=== PATIENT | female | born 1940 | race Caucasian/White ===

== ENCOUNTER 2024-06-07 19:27 | Observation (INO) | payer MEDICARE, SELFPAY ==
[2024-06-07] VITALS (11 sets, daily range): BP systolic 105–166; BP diastolic 55–90; PULSE 77–96; O2SAT 98; BMI 20.6; BMI 25.1
[2024-06-07 15:35] LABS: Glucose - Point of Care 160 mg/dl (70-99)
--- NOTE | 2024-06-07 15:42 | ED.GENMED ---
History of Present Illness
General
Chief Complaint: Fall
Source: patient
Exam Limitations: none
Time Seen by Provider: 06/07/24 15:20
Nursing documentation reviewed up to this point in time: agreed with
History of Present Illness
History of Present Illness:
84 Y/O F with CKD stage IV, DM, htn, confusion occasionally
lives alone
used to live with son who passed
other son visits daily and has cameras
pt recalls falling yesterday afternoon while in the kitchen. says she was reaching for her cane and fell
denies head strike
hurt her right side, ankle/foot, hip
yesterday son visited and thought she wasn't really herself, was limping more than usual
apparently has chronic right ankle pain and right hip pain after hip surgery
she also is on chronic morphine from broken lower back years ago
midodrine for orthostasis if necessary
pt doesn't recall being lightheaded before the fall
son says she is more herself yesterday but was limping and he wanted her checked
no thinners, plavix only
pt has not had cp, sob, vomiting, diarrhea, fever, chills, urinary symptoms
Past History
Past History
ED Past Medical History: NIDDM and Other (Diabetic neuropathy)
Social History
Tobacco: Former smoker
Alcohol: None
Drug: None
Living: with family
Employment: Retired
Family History
Family History: Diabetes
Review of Systems
Review of Systems
Allergies reviewed?: Yes
All Other Systems: Not applicable
Phy Exam
Physical Exam
Physical Exam:
GENERAL: Alert , in no apparent distress
HEAD: NCAT
NECK: no midline tenderness, active ROM intact, no paraspinal muscle tenderness;
EYE: pupils equal and reactive, EOMs intact.
ENT: o/p clr, mmm. no hemotympanum
CARDIAC: Regular rate and rhythm, no edema
LUNGS: Clear breath sounds bilaterally, no acute respiratory distress, no wheezes/rales/rhonchi
ABDOMEN: Soft, without focal tenderness, no r/g, no cvat
NEUROLOGICAL: Alert and oriented, no focal neuro deficits, CN intact, 5/5 strength, sensation intact
SKIN: Warm and dry, small skin tear approximately 2 cm left elbow with some ecchymosis,
MUSCULOSKELETAL: Moderate right ankle edema, tender right lateral malleolus, limited painful range of motion, mild right lateral trochanter area pain with hip 50 flexion, mild pain with rotation, knee seems nontender, full flexion, no focal foot
tenderness but minimal swelling diffusely, left elbow full range of motion, bilateral shoulders nontender, no neck tenderness
PSYCH: Normal and appropriate interaction.
Course
Orders/Labs/Results
Orders:
Orders
06/07/24 13:23
CT Head W/o Iv Contrast Urgent
Comment:
Reason For Exam: fall
CR Ankle - Right Min 3 Views * Urgent
Comment:
Reason For Exam: pain
CR Foot - Right Min 3 Views Urgent
Comment:
Reason For Exam: pain
CR Hip - RT w/wo Pel 2-3 Vw* Urgent
Comment:
Reason For Exam: pain
Include a pelvis x-ray?: Yes
CR Pelvis - 1 Or 2 Views Urgent
Comment:
Reason For Exam: pain
06/07/24 Dinner
Cholesterol Lowering
At Your Request: Limited Participation
Does patient need a safe tray?: No
Cholesterol Lowering: Sodium, 2 Gram
1800 elina/15 CHO Diabetic
06/07/24 15:40
Case Management Consult ONCE
Case Management Consult: VN/Home Care
Orthostatic VS- Treatment ONCE
boot [Ortho Boot Right- Treatment] ONCE
Short or tall?: Short
PT Consult [Pt Eval And Treat] Urgent
Activity Level: Ambulate
06/07/24 15:41
Electrocardiogram (*1) Urgent
Reason for Study: Fatigue / Weakness
EKG- Treatment ONCE
06/07/24 16:58
Basic Metabolic Panel Urgent
Comment: BMP NO K
Complete Blood Count/With Diff Urgent
Urinalysis Reflex To Culture Urgent
Date Specimen was Collected: 06/07/24
Time Specimen was Collected: 16:17
06/07/24 17:46
Morphine Sulfate Extended Rel. [Ms Contin (Extended Release)] 60 mg PO NOW STA
06/07/24 18:26
0.9% Sodium Chloride 500 ml [Nss] 500 ml IV BOLUS
06/07/24 18:59
Admit/Transfer Patient As Directed
Co-Sign Provider:
Level of Care: Observation services
Assign to:: Medical/Surgical
Physician / Group: domenic
Diagnosis: fall
06/07/24 19:16
Potassium Urgent
06/07/24 19:27
Code Status As Directed
Resuscitation Status: Do not resuscitate
Reached after discussion with pt or family/Healthcare POA: Yes
DNR Bracelet Application ONCE
06/07/24 20:14
Acetaminophen [Tylenol] 650 mg PO Q4HPRN PRN
Bisacodyl [Dulcolax] 10 mg RECTAL [id number] PRN
Carvedilol [Coreg] 12.5 mg PO BID
Dextrose 50%-Water [Dextrose 50% Syringe] 12.5 grams IV [id number] PRN
Docusate W/Senna [Senokot-S] 1 tablet PO BIDPRN PRN
Glucagon [GlucaGen] 1 mg IM PRN PRN
Levetiracetam [Keppra] 500 mg PO BID
Polyethylene Glycol Powder [Miralax] 17 grams PO DAILYPRN PRN
06/07/24 20:14
Activity As Directed
Activity Level: Out of Bed-Early Mobility
Bedside Glucose Monitoring As Directed
Frequency: AC&HS
Additional Instructions:: Change to q6h if pt on TPN, tube feeding or not eating
Orthostatic Vital Signs As Directed
Orthostatic VS Frequency: BID
Precautions As Directed
Type of Precautions: Seizure
Comment: Fall precaution
Vital Signs As Directed
Frequency: Per unit guidelines
DX Deep Vein Thrombosis Video Routine
06/07/24 20:47
Midodrine [ProAmatine] 2.5 mg PO BIDPRN PRN
06/07/24 21:00
Morphine Sulfate Extended Rel. [Ms Contin (Extended Release)] 60 mg PO BID@0600,1999
06/07/24 22:00
Mirtazapine [Remeron] 15 mg PO HS
06/08/24 00:00
Heparin 5,000 units SC Q8
06/08/24 05:08
Basic Metabolic Panel IN AM
Glycohemoglobin (HgbA1c) IN AM
06/08/24 07:30
Insulin Aspart Corrective Mod [Novolog Flexpen-Moderate Resistance] See Protocol SC AC
06/08/24 08:00
Amlodipine [Norvasc] 5 mg PO DAILY
Aspirin Chewable [Low Strength Aspirin] 81 mg PO DAILY
Clopidogrel Bisulfate [Plavix] 75 mg PO DAILY
Furosemide [Lasix] 20 mg PO DAILY
Glimepiride [Amaryl] 4 mg PO DAILY
HydrALAZINE [Apresoline] 25 mg PO DAILY
Pantoprazole [Protonix] 40 mg PO DAILY
06/08/24 14:00
Morphine Sulfate Extended Rel. [Ms Contin (Extended Release)] 15 mg PO DAILY@1400
06/08/24 18:00
Atorvastatin [Lipitor] 80 mg PO QPM
Abnormal Lab Results
06/07/24 06/07/24
15:33 16:58
Hgb 11.2 L g/dL
(12.0-16.0)
Hct 34.7 L %
(37.0-47.0)
MCV 79.4 L fL
(81.0-99.0)
MCH 25.6 L pg
(27.0-31.0)
MCHC 32.3 L g/dL
(33.0-37.0)
RDW 16.1 H %
(11.5-14.5)
BUN 35 H mg/dl
(7-17)
Creatinine 1.8 H mg/dL
(0.6-1.0)
Glucose 148 H mg/dl
(70-99)
Urine Glucose 3+ A
(Negative)
POC Glucose 160 H mg/dl
(70-99)
06/07/24 16:58
06/07/24 19:16
Vital Signs
Initial and Last Documented VS:
Initial Vital Signs
Temp Pulse Resp BP Pulse Ox
98 F 79 18 110/67 96
06/07/24 13:19 06/07/24 13:19 06/07/24 13:19 06/07/24 13:19 06/07/24 13:19
Last Documented Vital Signs
Temp Pulse Resp BP Pulse Ox
97.7 F 75 16 120/55 94
06/09/24 14:02 06/09/24 14:02 06/09/24 14:02 06/09/24 14:02 06/09/24 14:02
MDM/Problems Addressed
Differential Diagnosis Includes:
fall, weakness, electrolyte disturbance, uti, fracture ankle
MDM/Problems Addressed:
84 y/o F
fall at home unwitnessed but pt recounts the event well
this occured yesterday
son chris she seemed a little off, but she tends to have some waxing and waning memory loss and confsuion
but today she has been herself
having inc pain with walking simeon right ankle
chronic morphine ER for her chronic sacral pain, has been on high dose for years
pt has moderate swellin to ankle and pain with walking
xrays indep reviewed, neg for fx
likely sprain
had PT eval and pt did not do well on her feet, they reqcommended rehab which pt agrees to stay overnight
case management consult
*Critical Care Note
Total Time (30-74mins, 75-104mins- exclusive of procedures): Not Applicable
ED Attending Note
-
Portions of this chart may have been created with voice recognition software.� Occasional wrong word or��sound alike� substitutions may have occurred due to the inherent limitations of voice recognition software.
Discharge Plan
Departure
Patient Disposition: Admit
Date of Disposition: 06/07/24
Time of Disposition: 17:17
Admit to: Med/Surg
Presentation/result/management discussed w/ accepting MD/DO: Hospitalist
Condition: Fair
Covid-19: Not Applicable
Discharge Problem:
Fall, Ankle sprain, Ambulatory dysfunction, Weakness
Interventions
Interventions:
*Risk Screen - Suicide Last Done: 06/07/24 13:19
*General Assessment Last Done: 06/07/24 19:54
*Neglect/Abuse Screening Last Done: 06/07/24 13:19
ED- Fall Risk Assessment Last Done: 06/07/24 16:24
*ED COVID-19 Vaccine History Last Done: 06/07/24 19:54
*Nursing Disposition Last Done: 06/07/24 19:54
ED-Musculoskeletal Assessment Last Done: 06/07/24 16:24
ED- Neurological Assessment Last Done: 06/07/24 16:24
ED-Skin Assessment Last Done: 06/07/24 16:24
Discharge Date and Time
Discharge Date/Time: 06/07/24 19:57
--- NOTE | 2024-06-07 16:15 | CM ---
Addendum entered by Nellie Dwyer RN 06/07/24 16:52:
PT recommended SNF. Patient is refusing. Son understands she may need to be placed, but is hoping her pain is better and she can be discharged home with home care.
CM started preliminary referrals to SNF's. Son does not want [facility].
Original Note:
CM met with patient and son in room. Patient son reports that patient lives alone, but he has RING camera's through out the house that he monitors. Patient has had a history of placement at [facility]. Patient recalls having [facility] in the home
after her stay at [facility].
SOn and patient are both requesting home discharge with VN. PT in room with patient now.
[2024-06-07 17:05] LABS: % Basophils 0.4 % (0-2); % Eosinophils 1.6 % (0-6); % Immature Granulocytes 0.3 % (0-0.5); % Lymphocytes 23.3 % (20.5-51.1); % Monocytes 6.6 % (1.7-9.3); % Neutrophils 67.8 % (42.2-75.2); Absolute Eosinophils 0.2 10^3/uL (0-0.7); Absolute Lymphocytes 2.2 10^3/uL (1.2-3.4); Absolute Monocytes 0.6 10^3/uL (0.1-0.6); Absolute Neutrophils 6.4 10^3/uL (1.4-6.5); Hematocrit 34.7 % (37.0-47.0); Hemoglobin 11.2 g/dL (12.0-16.0); Mean Corp Hgb Conc. 32.3 g/dL (33.0-37.0); Mean Corpuscular Hgb 25.6 pg (27.0-31.0); Mean Corpuscular Volume 79.4 fL (81.0-99.0); Mean Platelet Volume 10.2 fL (7.4-10.4); Nucleated Red Blood Cells % 0 %; Platelet Count 154 10^3/uL (130-400); Red Blood Cell Count 4.37 10^6/uL (4.20-5.40); Red Cell Dist. Width 16.1 % (11.5-14.5); White Blood Cell Count 9.5 10^3/uL (4.8-10.8)
[2024-06-07 17:07] LABS: Urine Albumin Trace (Neg - Trace); Urine Bilirubin Negative (Negative); Urine Character Clear (Clear); Urine Color Yellow; Urine Glucose 3+ (Negative); Urine Ketone Negative (Negative); Urine Leukocyte Negative (Negative); Urine Nitrite Negative (Negative); Urine Occult Blood Negative (Negative); Urine Urobilinogen Negative (Neg - 1+)
[2024-06-07 17:38] LABS: Blood Urea Nitrogen 35 mg/dl (7-17); Calcium 10.1 mg/dl (8.4-10.2); Carbon Dioxide 24 mmol/L (22-30); Chloride 104 mmol/L (98-107); Estimated Creatinine Clearance 20 ml/min; Glucose 148 mg/dl (70-99); Sodium 139 mmol/L (135-145); eGFR 27.27
[2024-06-07] MEDS: MS CONTIN (EXTENDED RELEASE) 60 MG PO ×2 (17:56→21:25)
[2024-06-07] MEDS: NSS 500 IV (19:05)
--- NOTE | 2024-06-07 19:31 | HPS.HSE ---
Family Physician
-
Family Physician: Torres Downey
Chief Complaint
-
Mechanical fall
History of Present Illness
84-year-old female with history of diabetes, hypertension, dyslipidemia, orthostatic hypotension, seizure disorder and chronic pain management with morphine presented to the hospital after had a mechanical fall yesterday in her kitchen, she says she
was trying to reach for her cane instead of the walker look like lost balance and fell sideways,
Look like one of her son was visiting her they noticed she has been limping more than usual as she has a chronic right ankle and right hip pain. Denies any symptoms prior to the fall and dizziness or palpitation or any chest pain or shortness of
breath or vision change or weakness or numbness in extremity, this is second fall since October.
Multiple x-ray of the hip and ankle showed no fracture.
Seen by PT in the ER and they recommended placement but could not be done.
She is awake, alert and oriented x 3 hold appropriate conversation.
Medical History
Past Medical History
Past Medical History: Reports Other
Additional Past Medical History:
Past medical history reviewed:
Seizure disorder
Chronic pain syndrome narcotic dependent
Hypertension
Dyslipidemia
Chronic kidney disease stage III
Orthostatic hypotension
Mood disorder
Right hip fracture status post ORIF
Social history: Lives alone, no smoking alcohol use,
Family history: Reviewed and noncontributory
Past Surgical History: Reports Other
Social History
Unable to obtain full social history at this time due to: Other
Family History
Family History: Other
Allergies / Home Medications
Allergies reflects when Allergies were last updated in [facility].
Home Medications with original date entered in [employer]
Allergy/Medication List:
Allergies
Allergy/AdvReac Type Severity Reaction Status Date / Time
Sulfa (Sulfonamide Allergy Rash Verified 06/07/24 13:22
Antibiotics)
[Sulfa(Sulfonamide
Antibiotics)]
Home Medications
clopidogrel 75 mg tablet 75 mg PO DAILY 03/08/16
atorvastatin 40 mg tablet 80 mg PO QPM 05/09/17
levetiracetam 500 mg tablet 500 mg PO BID 05/09/17
aspirin 81 mg chewable tablet 81 mg PO DAILY 05/10/17
mirtazapine 15 mg tablet 15 mg PO HS #3 tabs 05/14/17
glimepiride 1 mg tablet 4 mg PO DAILY 07/16/17
amlodipine 5 mg tablet 5 mg PO DAILY 06/07/24
benzonatate 100 mg capsule 100 mg PO BID PRN UNK 06/07/24
carvedilol 12.5 mg tablet 12.5 mg PO BID 06/07/24
furosemide 20 mg tablet 20 mg PO DAILY 06/07/24
hydralazine 25 mg tablet 25 mg PO DAILY 06/07/24
midodrine 2.5 mg PO 2XD PRN BP < 80 06/07/24
morphine 15 mg tablet,extended release 60 mg PO BID@0600,2000 06/07/24
morphine 15 mg tablet,extended release DAILY 06/07/24
pantoprazole 40 mg DAILY 06/07/24
Review of Systems
-
A 12 point ROS was completed and negative except as noted: Yes
Physical Exam
Vital Signs
Vital Signs
Temp Pulse Resp BP Pulse Ox
98 F 79 18 140/90 94
06/07/24 13:19 06/07/24 13:19 06/07/24 13:19 06/07/24 18:00 06/07/24 17:19
Physical exam:
General: Awake, alert and oriented x3, not in distress and holds appropriate conversation.
HEENT: Hearing impairment appreciated mostly on the left side no active discharge, ecchymosis or bruising, moist lips, tongue and mucous membrane.
Eyes: No discharge or red conjunctiva, no nystagmus, pupils are reactive and equal
Neck:Supple, no JVD no bruit no goiter.
Respiratory: Normal AP contour and diameter, normal chest wall movement, normal respiratory effort, no respiratory distress,
Lungs: Good air entry bilaterally, no wheezing or rhonchi, no rales or crackles
Heart: S1, S2 regular, normal rate, no added sound.
Gastrointestinal: Positive bowel sounds, soft, nontender, no guarding or rigidity or organomegaly
Musculoskeletal: Right foot and ankle surgical shoe, able to move her toe,, no chest wall abnormality or tenderness. All joints and extremities have good range of motion, no muscle tenderness or any joint swelling or tenderness.
Extremities: No pitting edema, good peripheral pulses, good range of motion
Skin: Warm and dry, no ulceration, normal color.
Neurological: Awake, alert and oriented x3,, hearing impairment appreciated, no facial droop, speech clear and comprehensive, good muscle tone, normal sensory and motor function
Psychiatric: Normal mood, normal thought and judgment, normal affect,
Physical Exam
General: Other
Laboratory Results
-
06/07/24 16:58
Laboratory Results
Total Bilirubin Cancelled 06/07/24 16:58
AST Cancelled 06/07/24 16:58
ALT Cancelled 06/07/24 16:58
Alkaline Phosphatase Cancelled 06/07/24 16:58
Pelvic x-ray:No overt acute displaced pelvic bone fractures or dislocation identified on limited frontal view. Right hip arthroplasty noted without overt complication. Mild to moderate degenerative changes of the pubis symphysis, bilateral
sacroiliac joints and partially visualized lower lumbar spine. Soft tissues are grossly unremarkable.
Head CT no acute intracranial abnormalities
Right foot and ankle x-ray: No acute fracture
Data Reviewed
-
Diagnostic Radiology: Other
Impression/Plan
-
IMPRESSION:
84-year-old female with multiple comorbidities, presented to the hospital with the son after son visited and noticed she was limping more than usual she has a chronic right hip and right ankle pain, patient on a mechanical fall yesterday in the ER
where the x-ray of the hip and foot and ankle show no fracture, likely sprain, seen by PT and recommended placement and she is agreeing on that.
Mechanical fall
Right foot pain
Right ankle pain
Chronic kidney disease
Diabetes mellitus
Seizure disorder
Hypertension
Chronic pain syndrome narcotic
PLAN:
PT saw the patient and the recommended placement cannot be done at this time
Follow seizure precaution
Continue her morphine as she takes 60 mg twice a day and 15 at 2 PM all extended release
Continue to monitor
Continue amlodipine
Monitor vital sign
Orthostatic vital sign check
Continue midodrine
Continue glimepiride to monitor blood sugar closely
All discussed with the patient detail expressed understanding
CODE STATUS addressed with the patient she wanted to to be a DNR
DVT prophylaxis heparin subcu
Discussed with the nurse
[2024-06-07 19:40] LABS: Potassium 4.7 mmol/L (3.5-5.1)
--- NOTE | 2024-06-07 20:00 | PTCARENOTE ---
pt arrived to floor from ED to 2 [address], pt walked with assist x1 and walker to bed. AAOX3, very pleasant oriented to room. Ortho boot in place to R foot. NO needs at this time. Assessment on going.
[2024-06-07] MEDS: COREG 12.5 MG PO (20:55)
[2024-06-07] MEDS: KEPPRA 500 MG PO (20:55)
[2024-06-07] MEDS: REMERON 15 MG PO (21:26)
[2024-06-07 22:11] LABS: Glucose - Point of Care 112 mg/dl (70-99)
[2024-06-08] MEDS: HEPARIN 5000 UNITS SC ×4 (00:12→23:26)
[2024-06-08 05:54] LABS: Blood Urea Nitrogen 31 mg/dl (7-17); Calcium 9.5 mg/dl (8.4-10.2); Carbon Dioxide 27 mmol/L (22-30); Chloride 105 mmol/L (98-107); Estimated Creatinine Clearance 17 ml/min; Glucose 72 mg/dl (70-99); Potassium 4.3 mmol/L (3.5-5.1); Sodium 140 mmol/L (135-145); eGFR 27.27
[2024-06-08] MEDS: MS CONTIN (EXTENDED RELEASE) 60 MG PO ×2 (06:00→20:26)
[2024-06-08 07:31] VITALS: BP 127/69; BP 147/65; BP 149/68; PULSE 78; PULSE 79; PULSE 82
[2024-06-08 07:46] LABS: Glucose - Point of Care 93 mg/dl (70-99)
[2024-06-08] MEDS: NOVOLOG FLEXPEN-MODERATE RESISTANCE SC ×2 (07:47→17:41)
[2024-06-08] MEDS: NORVASC 5 MG PO (07:50)
[2024-06-08] MEDS: KEPPRA 500 MG PO ×2 (07:50→20:25)
[2024-06-08] MEDS: PLAVIX 75 MG PO (07:51)
[2024-06-08] MEDS: APRESOLINE 25 MG PO (07:51)
[2024-06-08] MEDS: COREG 12.5 MG PO ×2 (07:51→20:25)
[2024-06-08] MEDS: PROTONIX 40 MG PO (07:51)
[2024-06-08] MEDS: LASIX 20 MG PO (07:51)
[2024-06-08] MEDS: AMARYL 4 MG PO (07:51)
[2024-06-08] MEDS: LOW STRENGTH ASPIRIN 81 MG PO (07:51)
[2024-06-08 10:53] VITALS: BP 139/62; PULSE 75; O2SAT 98
--- NOTE | 2024-06-08 11:03 | W.PN.HOSP.TC ---
Today's Communication/Plan
-
CT pelvis to rule out occult fracture
rehab discharge planning
Assessment / Plan
Assessment / Plan
84-year-old female with multiple comorbidities, presented to the hospital with the son after son visited and noticed she was limping more than usual she has a chronic right hip and right ankle pain, patient on a mechanical fall yesterday in the ER
where the x-ray of the hip and foot and ankle show no fracture, likely sprain, seen by PT and recommended placement and she is agreeing on that.
Mechanical fall
Right foot pain
Right ankle pain
Chronic kidney disease
Diabetes mellitus
Seizure disorder
Hypertension
Chronic pain and narcotic dependence
PLAN:
Patient evaluated by physical therapy in ER and recommended to go through rehab
Follow seizure precaution
Continue her morphine as she takes 60 mg twice a day 0800 and 1600 dosing and 15 at bedtime. PDMP reviewed and managed by Dr. Rasmussen/rheumatology
Multiple ankle/pelvis/hip x-ray rule out any fracture
Patient complaining of right deep-seated groin pain on weightbearing, CT pelvis without contrast ordered to rule out any occult fracture
Right ankle brace in place for strain.
CODE STATUS addressed with the patient she wanted to to be a DNR
DVT prophylaxis heparin subcu
Patient lives by herself and have all assistive DME at home although may not be using it at times including walker. Patient remains at high risk for further fall and complication of traumatic fractures/bleed issue.
Patient should go through short stay rehab to assure safe discharge at home although patient prefers to go home. Family needs to be on board with the plan. Patient does have decision-making capacity.
Anticipated Discharge: Within 24 hours
Subjective/Interval History
-
Date of Service: June 08, 2024
Patient sitting comfortably in chair
Complaining some right groin pain
Oriented and able to provide history
Interested in being released home
Objective Data
-
Labs:
Laboratory Results
06/08/24
05:08
Sodium 140
Potassium 4.3
Chloride 105
Carbon Dioxide 27
BUN 31 H
Creatinine 1.8 H
Glucose 72
Calcium 9.5
Vital Signs:
Vital Signs
Temp Pulse Resp BP Pulse Ox
98.4 F 78 18 147/65 92
06/08/24 07:31 06/08/24 07:51 06/08/24 07:31 06/08/24 07:51 06/08/24 07:31
I&O
06/07/24 06/08/24 06/09/24
06:59 06:59 06:59
Intake Total 240 / 240
Balance 240 / 240
Review of Systems
-
Respiratory: Reports No Symptoms
Cardiac: Reports No Symptoms
Abdomen/GI: Reports No Symptoms
Physical Exam
-
General: Comfortable
HEENT: Negative Oxygen
Respiratory: Clear to Auscultation
Cardiac: Regular Rhythm and S1/S2; Negative Murmur or Rub
GI: Soft, Nontender and Nondistended
Musculoskeletal: No Edema and Other (Right ankle immobilizer)
Neuro: Awake, Alert, Oriented, No Motor Deficits and Nonfocal/Grossly Intact
Psych: Calm
[2024-06-08 11:42] LABS: Glucose - Point of Care 157 mg/dl (70-99)
[2024-06-08 12:21] LABS: Glycohemoglobin (HgbA1c) 8.8 % (4.0-5.6)
[2024-06-08] MEDS: NOVOLOG FLEXPEN-MODERATE RESISTANCE 1 UNITS SC (13:14)
[2024-06-08] MEDS: MS CONTIN (EXTENDED RELEASE) 15 MG PO (13:31)
[2024-06-08 15:15] VITALS: BP 145/76
[2024-06-08 17:41] LABS: Glucose - Point of Care 119 mg/dl (70-99)
[2024-06-08] MEDS: LIPITOR 80 MG PO (17:42)
[2024-06-08 19:20] VITALS: BP 113/56; BP 148/72; BP 155/76; PULSE 72; PULSE 83; PULSE 87
[2024-06-08 21:40] LABS: Glucose - Point of Care 159 mg/dl (70-99)
[2024-06-08] MEDS: REMERON 15 MG PO (23:12)
[2024-06-08 23:21] VITALS: BP 140/77
[2024-06-09] MEDS: MS CONTIN (EXTENDED RELEASE) 60 MG PO (06:17)
[2024-06-09 07:20] VITALS: BP 142/75
[2024-06-09] MEDS: PROTONIX 40 MG PO (07:54)
[2024-06-09] MEDS: PLAVIX 75 MG PO (07:54)
[2024-06-09] MEDS: AMARYL 4 MG PO (07:54)
[2024-06-09] MEDS: LOW STRENGTH ASPIRIN 81 MG PO (07:55)
[2024-06-09] MEDS: KEPPRA 500 MG PO (07:55)
[2024-06-09] MEDS: HEPARIN 5000 UNITS SC (07:56)
[2024-06-09] MEDS: NORVASC 5 MG PO (07:58)
[2024-06-09] MEDS: COREG 12.5 MG PO (07:58)
[2024-06-09] MEDS: APRESOLINE 25 MG PO (07:58)
[2024-06-09] MEDS: LASIX 20 MG PO (07:58)
[2024-06-09 08:02] LABS: Glucose - Point of Care 96 mg/dl (70-99)
[2024-06-09] MEDS: NOVOLOG FLEXPEN-MODERATE RESISTANCE SC (08:02)
--- NOTE | 2024-06-09 09:24 | W.PN.HOSP.TC ---
Addendum entered and electronically signed by Horacio Matthews MD 06/09/24 14:16:
83-year-old male presented with mechanical fall was reaching out fo a cane and fell. Did not pass out,
No pain except for ankle
Anxious to go home
I personally performed a history and physical exam of the patient and discussed management with the resident. I reviewed the resident's note and agree with the documented findings and plan of care HPI/CC.
CVS: S1-S2 normal
Chest: CTA B/L
Abdomen: Soft, NT
Extremities: Right ankle mild tenderness with inversion eversion. No pain with plantar or dorsiflexion.
# Mechanical fall
Ankle sprain likely
No fractures
No hip pain on exam
Continue CAM Boot
# Long discussion with the patient regarding constipation and the need to take Senokot and to have bowel movements at least every other day
# Hypertension-continue amlodipine, Coreg, hydralazine
# Hyperlipidemia-continue atorvastatin
# Chronic kidney disease-creatinine 2.2. No recent baseline.
Hold Lasix for 2 days and repeat BMP in 1 week
# History seizures (Keppra
# Diabetes-continue glimepiride
# Depression-continue Remeron
# Chronic pain-narcotic dependent-continue morphine with bowel regimen.Follows with outpatient caustic pump operator
# History of CVA-continue Plavix
# Ex-smoker
# DVT prophylaxis-subcutaneous heparin
# DNR
Okay for discharge with holding Lasix for 2 days and outpatient labs in 1 week
Visiting nurse to be set up
Original Note:
Today's Communication/Plan
-
Case management consult for discharge
Assessment / Plan
Assessment / Plan
84-year-old female with multiple comorbidities, presented to the hospital with the son after son visited and noticed she was limping more than usual she has a chronic right hip and right ankle pain, patient on a mechanical fall yesterday in the ER
where the x-ray of the hip and foot and ankle show no fracture, likely sprain, seen by PT and recommended placement and she is agreeing on that.
PLAN:
#Mechanical fall
-Right ankle and foot x-ray showed no signs of fracture, hip and pelvis x-ray, pelvic CT all showed no fracture
-Patient still complains of deep sided right hip pain, and right ankle pain
-PT OT recommended rehab for patient
-Patient would like to go home and is not interested in rehab at this time
-Case management will be consulted to assist patient as she remains high risk for further falls and complications, it was recommended patient go to rehab, patient does have decision-making capacity
-Patient was set up with visiting nurse, PT/OT and home health aide by case management
-Patient is wearing a brace on her right foot
#Seizure disorder
-Continue seizure precautions
#Chronic pain on morphine
-Patient takes 60 mg twice a day at 08 116 100 as well as 15 at bedtime. PDMP reviewed and managed by Dr. Rasmussen/rheumatology
-Patient evaluated by physical therapy in ER and recommended to go through rehab
CODE STATUS: DNR
DVT prophylaxis heparin subcu
Anticipated Discharge: Today
Subjective/Interval History
-
Date of Service: June 09, 2024
Patient lying comfortably in bed, still complaining of deep right-sided groin pain
Interested in going home
Objective Data
-
Vital Signs:
Vital Signs
Temp Pulse Resp BP Pulse Ox
97.8 F 82 18 142/75 91
06/09/24 07:20 06/09/24 07:58 06/09/24 07:20 06/09/24 07:58 06/09/24 07:20
I&O
06/08/24 06/09/24 06/10/24
06:59 06:59 06:59
Intake Total 240 / 240 810 / 810
Balance 240 / 240 810 / 810
Review of Systems
-
History Source: Patient
Constitutional: Reports No Symptoms
Respiratory: Reports No Symptoms
Cardiac: Reports No Symptoms
Abdomen/GI: Reports No Symptoms
Musculoskeletal: Reports Joint Pain (Complains of right-sided deep hip pain, as well as right-sided ankle pain)
Skin: Reports No Symptoms
Neuro: Reports No Symptoms
Physical Exam
-
General: Well Developed, No Apparent Distress and Comfortable
Respiratory: Clear to Auscultation
Cardiac: Regular Rhythm and S1/S2
GI: Soft, Nontender, Nondistended and Normal Bowel Sounds
Skin: Warm and Dry
Psych: Calm and Intact Judgement/Insight
Data Reviewed
-
Diagnostic Radiology: Report Reviewed by me and Discussed with Physician
CT Scan: Report Reviewed by me and Discussed with Physician
Labs: Labs Reviewed by me and Discussed with Physician
[2024-06-09 09:29] VITALS: BP 113/57; BP 142/75; BP 145/78; PULSE 82; PULSE 90; PULSE 95
[2024-06-09 10:59] LABS: Blood Urea Nitrogen 41 mg/dl (7-17); Calcium 9.9 mg/dl (8.4-10.2); Carbon Dioxide 27 mmol/L (22-30); Chloride 98 mmol/L (98-107); Estimated Creatinine Clearance 14 ml/min; Glucose 153 mg/dl (70-99); Potassium 4.4 mmol/L (3.5-5.1); Sodium 136 mmol/L (135-145); eGFR 21.43
[2024-06-09 11:36] LABS: Glucose - Point of Care 171 mg/dl (70-99)
[2024-06-09 12:30] LABS: % Basophils 0.4 % (0-2); % Eosinophils 2.2 % (0-6); % Immature Granulocytes 0.4 % (0-0.5); % Lymphocytes 27.6 % (20.5-51.1); % Neutrophils 60.4 % (42.2-75.2); Absolute Eosinophils 0.2 10^3/uL (0-0.7); Absolute Lymphocytes 2.3 10^3/uL (1.2-3.4); Absolute Monocytes 0.7 10^3/uL (0.1-0.6); Absolute Neutrophils 4.9 10^3/uL (1.4-6.5); Hematocrit 35.5 % (37.0-47.0); Hemoglobin 11.2 g/dL (12.0-16.0); Mean Corp Hgb Conc. 31.5 g/dL (33.0-37.0); Mean Corpuscular Hgb 26.4 pg (27.0-31.0); Mean Corpuscular Volume 83.5 fL (81.0-99.0); Mean Platelet Volume 10.5 fL (7.4-10.4); Nucleated Red Blood Cells % 0 %; Platelet Count 164 10^3/uL (130-400); Red Blood Cell Count 4.25 10^6/uL (4.20-5.40); Red Cell Dist. Width 16.5 % (11.5-14.5); White Blood Cell Count 8.1 10^3/uL (4.8-10.8)
--- NOTE | 2024-06-09 12:36 | W.DCSUMMARY ---
Discharge Summary
Discharge Data
Date of Admission: 06/07/24
Date of Discharge: 06/09/24
-
Pending Results: No
Hospital Course
Discharging Physician : Cassie Rivera
Disposition : Home
Primary care physician : Torres Rosenbaum
Principal Discharge diagnosis : Mechanical Fall
Chronic Discharge diagnosis : right foot pain, right ankle pain, chronic kidney disease, diabetes, seizure disorder, hypertension, chronic pain and narcotic dependence
Hospital Course : 84 F presents for a mechanical fall from home. She lives alone and fell when reaching for a cane. On admission multiple xrays showed no fracture of the hip or ankle. Patient complained of right sided hip pain and right ankle pain.
CT and xray ruled out any acute pathology. Patient was placed in a boot and seen by PT/OT. Pt recommended that the patient be sent to rehab as she is still high risk for another fall, and this was her second fall within a year. The patient refused
to go to rehab and instead was discharged home with home health aid, visiting nurse and home PT/OT. The patent also states her son is able to help. Pt is on chronic morphine and dosen't endorse a bowel movement during her stay. Laxatives were
discussed with the patient regarding constipation and she was given senokot to take at home. Patient was advised to hold her Lasix for 2 days, and to repeat a BMP within 1 week. As well as follow-up with her primary physician. Pt was discharged
home.
Important imaging findings : 06/07/24 Ankle xray IMPRESSION:
No acute fractures.
06/07/24 Food xray IMPRESSION:
No acute fractures.
06/07/[address] IMPRESSION:
No acute intracranial abnormality noted.
Hip Xray 06/07/24 Impression: No overt acute displaced pelvic bone fractures or dislocation identified on limited frontal view. Right hip arthroplasty noted without overt complication. Mild to moderate degenerative changes of the pubis symphysis,
bilateral sacroiliac joints and partially visualized lower lumbar spine. Soft tissues are grossly unremarkable.
Pelvis ct 06/08/24 IMPRESSION:
No acute fracture.
Procedure findings : None
Discharge Plan
-
Patient Disposition: Home (Routine Discharge)
Discharge Diagnosis/Procedures: Mechanical fall, right foot pain, right ankle pain, chronic kidney disease, diabetes, seizure disorder, hypertension, chronic pain and narcotic dependence
Condition: Good
Diet: As tolerated
Activity: With assistance
Driving Restrictions: Not until seen by your Dr
Bathing Restrictions: None
Blood Work: BMP in 1 week
Other Services: VN, PT and OT
Activity Restrictions/Additional Instructions:
DO not take any over the counter pain medicines except Tylenol.
Referrals:
Torres Downey DO [Family Provider] - in one week
Additional Discharge Medication Instructions: Hold lasix for 2 days.
Prescriptions:
New
senna 8.6 mg capsule
17.2 mg PO BID Qty: 60 0RF
polyethylene glycol 3350 [Miralax] 17 gram powder in packet
17 g PO DAILY Qty: 30 0RF
Continued
clopidogrel 75 MG tablet
75 mg PO DAILY
atorvastatin 40 MG tablet
80 mg PO QPM
levetiracetam 500 MG tablet
500 mg PO BID
aspirin 81 MG tablet,chewable
81 mg PO DAILY
mirtazapine 15 MG tablet
15 mg PO HS Qty: 3 0RF
glimepiride 1 MG tablet
4 mg PO DAILY
carvedilol 12.5 mg Tablet
12.5 mg PO BID
hydralazine 25 mg Tablet
25 mg PO DAILY
amlodipine 5 mg Tablet
5 mg PO DAILY
benzonatate 100 mg Capsule
100 mg PO BID PRN (Reason: COUGH)
furosemide 20 mg Tablet
20 mg PO DAILY
midodrine
2.5 mg PO 2XD PRN (Reason: BP < 80)
pantoprazole
40 mg DAILY
morphine 15 MG tablet extended release
DAILY
Rx Instructions:
@1400 DAILY
morphine 15 MG tablet extended release
60 mg PO BID@0600,1999
Discharge Orders:
Discharge Patient (As Directed); Ordered 06/09/24
Ordered By: Erick Rivera
Discharge Date and Time
Discharge Date/Time: 06/09/24 14:50
Print Language: AUSTRALIAN
[2024-06-09] MEDS: SENOKOT-S 1 TABLET PO (12:52)
[2024-06-09] MEDS: NOVOLOG FLEXPEN-MODERATE RESISTANCE 1 UNITS SC (12:53)
--- NOTE | 2024-06-09 12:53 | CM ---
Patient has been medically cleared for discharge to home with [facility] VN, PT/OT and CREDIT REVIEW MANAGER. Patient and son have declined SNF recommendation. Son and family will assist patient after discharge. Son will transport home.
[2024-06-09] MEDS: MS CONTIN (EXTENDED RELEASE) 15 MG PO (13:00)
[2024-06-09 14:02] VITALS: BP 120/55
== END 2024-06-09 14:50 | disposition home or self-care (01) ==
LOC: 2 NORTH 19:27
PROVIDERS: Physician Assistant; ADMITTING PHYSICIAN Internal Medicine; ATTENDING PHYSICIAN Hospitalist; EMERGENCY PHYSICIAN Student in an Organized Health Care Education/Training Program; FAMILY PHYSICIAN Family Medicine
DX: M25.571 Pain in right ankle and joints of right foot (principal); M79.671 Pain in right foot; M25.551 Pain in right hip; R53.1 Weakness; R53.83 Other fatigue; G89.4 Chronic pain syndrome; F11.20 Opioid dependence, uncomplicated; W01.0XXA Fall on same level from slipping, tripping and stumbling without subsequent striking against object, initial encounter; Y93.89 Activity, other specified; Y92.000 Kitchen of unspecified non-institutional (private) residence as the place of occurrence of the external cause; I12.9 Hypertensive chronic kidney disease with stage 1 through stage 4 chronic kidney disease, or unspecified chronic kidney disease; E11.22 Type 2 diabetes mellitus with diabetic chronic kidney disease; E11.40 Type 2 diabetes mellitus with diabetic neuropathy, unspecified; I95.1 Orthostatic hypotension; G40.909 Epilepsy, unspecified, not intractable, without status epilepticus; F32.A Depression, unspecified; E78.5 Hyperlipidemia, unspecified; M53.3 Sacrococcygeal disorders, not elsewhere classified; M47.816 Spondylosis without myelopathy or radiculopathy, lumbar region; N18.4 Chronic kidney disease, stage 4 (severe); Z66 Do not resuscitate; Z60.2 Problems related to living alone; Z87.891 Personal history of nicotine dependence; Z79.82 Long term (current) use of aspirin; Z79.02 Long term (current) use of antithrombotics/antiplatelets; Z79.84 Long term (current) use of oral hypoglycemic drugs; Z79.4 Long term (current) use of insulin; Z88.2 Allergy status to sulfonamides; Z96.641 Presence of right artificial hip joint; Z86.73 Personal history of transient ischemic attack (TIA), and cerebral infarction without residual deficits
CPT/HCPCS: 29515; 70450; 72170; 72192; 73502; 73610; 73630; 80048; 81003; 82962; 83036; 84132; 85025; 93005; 96360; 97116; 97166; 99285; G0378

== ENCOUNTER 2024-11-14 18:22 | Inpatient (IN) | payer MEDICARE, OTHER, SELFPAY ==
[2024-11-14] VITALS (10 sets, daily range): BP systolic 137–212; BP diastolic 67–150; BMI 23.4
--- NOTE | 2024-11-14 13:39 | ED.GENMED ---
History of Present Illness
<Erick Rivera DO, Resident - Last Filed: 11/14/24 14:43>
General
Chief Complaint: Fall
Source: patient, records and family
Time Seen by Provider: 11/14/24 12:40
History of Present Illness
History of Present Illness:
84-year-old female past medical history of chronic ambulatory dysfunction with multiple falls, CKD, diabetes, seizure disorder, chronic pain with narcotic dependence presents for an unwitnessed mechanical fall at home. Patient states she was trying
to get coffee and slipped on carpet. She fell onto her right shoulder, did not lose consciousness and did not strike her head. Of note patient does take Plavix. On presentation to the ED patient reports pain in the right shoulder and left ankle,
there is swelling and deformity of the right shoulder. Patient takes morphine chronically multiple times a day and uses 2 L of oxygen at home at night.
Past History
<Erick Rivera DO, Resident - Last Filed: 11/14/24 14:43>
Past History
ED Past Medical History: NIDDM and Other (Diabetic neuropathy)
Social History
Tobacco: Former smoker
Alcohol: None
Drug: None
Living: with family
Employment: Retired
Family History
Family History: Diabetes
Review of Systems
<Erick Rivera DO, Resident - Last Filed: 11/14/24 14:43>
Review of Systems
Constitutional: Reports no symptoms
EENT: Reports no symptoms
Respiratory: Reports no symptoms
Cardiac: Reports no symptoms
ABD/GI: Reports no symptoms
: Reports no symptoms
Musculoskeletal: Reports joint swelling, muscle pain and other (Right-sided shoulder pain and left ankle pain)
Phy Exam
<Erick Rivera DO, Resident - Last Filed: 11/14/24 14:43>
General Physical Exam
General Presentation: well appearing and no apparent distress
General age: appears stated age
General Skin: warm and dry
General Mental: alert
Cardiovascular Exam
Cardiovascular Exam: regular rate/rhythm and no edema
Pulmonary Exam
Pulmonary Exam: lungs clear, no respiratory distress and no crackles
Musculoskeletal Exam
Musculoskeletal Exam: neuro vasc intact and other (Right shoulder is deformed, appears to be displaced anteriorly. Limited range of motion of right shoulder secondary to pain and deformity. Left ankle pain lateral malleolus, full range of motion
and strength at left ankle. Patient has intact pulses in right arm and left leg.)
Course
<Erick Rivera DO, Resident - Last Filed: 11/14/24 14:43>
Orders/Labs/Results
Orders:
Orders
11/14/24 12:06
CR Ankle - Left Min 3 Views Urgent
Comment:
Reason For Exam: fall, injury
CR Shoulder - Right Min 2 View Urgent
Comment:
Reason For Exam: fall, injury
11/14/24 13:22
CT Upper Ext W/o Iv Cont Rt Urgent
Comment:
Reason For Exam: fall, prox humer fx on xray, eval for dislocation
11/14/24 13:23
HYDROmorphone [Dilaudid] 0.5 mg IV NOW STA
11/14/24 13:25
Case Management Consult ONCE
Case Management Consult: Discharge Planning
11/14/24 14:42
HYDROmorphone [Dilaudid] 0.25 mg IV NOW STA
11/14/24 Dinner
Regular
11/14/24 18:06
Acetaminophen [Tylenol] 650 mg PO Q6HPRN PRN
Ice Application [Cold Application] As Directed
Location: right arm
Frequency: Intermittent q4h
Duration of Application: No longer than 20 minutes
Method of Delivery: Ice packs
Sling [Braces/Immobilizers] As Directed
Type of Brace/Immobilizer: Sling
Location for Brace/Immobilizer: right arm
Out of bed with brace/immobilizer: Yes
Instructions: take off to sleep
11/14/24 18:08
Admit/Transfer Patient As Directed
Co-Sign Provider:
Level of Care: Inpatient admission
Assign to:: Medical/Surgical
Physician / Group: harvinder borja
Diagnosis: Mechanical fall right proximal humerus fracture, left ankle sprain
Reason for Hospitalization: Mechanical fall right proximal humerus fracture, left ankle sprain
Expected length of stay greater than two midnights?: Yes
ELOS- Estimated Length of Stay in days: 3
I certify the patient meets the requirements for IP care: Yes
Code Status As Directed
Resuscitation Status: Do not resuscitate
Reached after discussion with pt or family/Healthcare POA: Yes
Based on pt advanced directive or healthcare POA form: Yes
Decision communicated with: Per patient
DNR Bracelet Application ONCE
11/14/24 18:13
PRN Pain Medication Management As Directed
May give lesser potent ordered pain med per pt: Yes
preference::
Protocol:: Medication orders for pain may be administered in a
manner that supports deferring to patient preference
when the pt is:
- Requesting an ordered lesser potent pain medication.
Least to most potent pain medications are defined
as: acetaminophen < NSAID < tramadol < opioids
(morphine, oxycodone, hydromorphone).
- Requesting a lesser dose of the same medication IF
ORDERED.
- Requesting a less intrusive route of administration
if both routes are prescribed by the provider (PO <
IV).
11/14/24 18:32
CBC/With Diff [Complete Blood Count/With Diff] Urgent
CMP [Comprehensive Metabolic Panel] Urgent
11/14/24 19:34
Midodrine [ProAmatine] 2.5 mg PO DAILYPRN PRN
Polyethylene Glycol Powder [Miralax] 17 grams PO DAILYPRN PRN
11/14/24 19:34
Activity As Directed
Activity Level: With Assistance
Pneumatic Compression Sleeves As Directed
Type: Knee high
Precautions As Directed
Type of Precautions: Other
Comment: fall
Vital Signs As Directed
Frequency: Per unit guidelines
O2 Therapy [RESP] Routine
Nasal Cannula Liter Flow: 2 LPM
Titrate/Wean O2 to maintain O2 sat greater than (%): 92
Special Instructions: Patient 2 L nasal cannula dependent at bedtime
Ot Eval And Treat Routine
Pt Eval And Treat Routine
Activity Level: With Assistance
DX Deep Vein Thrombosis Video Routine
11/14/24 20:00
Atorvastatin [Lipitor] 40 mg PO BID
Carvedilol [Coreg] 12.5 mg PO BID
Cholecalciferol (Vitamin D3) [VITAMIN D3 (cholecalciferol)] 25 mcg PO BID
Famotidine [Pepcid] 20 mg PO BID
Glimepiride [Amaryl] 4 mg PO BID
Levetiracetam [Keppra] 500 mg PO BID
Morphine Sulfate Extended Rel. [Ms Contin (Extended Release)] 15 mg PO BID@1400,2000
11/14/24 22:00
Mirtazapine [Remeron] 15 mg PO HS
Pantoprazole [Protonix] 40 mg PO HS
11/15/24 06:00
Basic Metabolic Panel IN AM
Complete Blood Count/With Diff IN AM
Morphine Sulfate Extended Rel. [Ms Contin (Extended Release)] 60 mg PO BID@0600,1800
11/15/24 08:00
Amlodipine [Norvasc] 5 mg PO DAILY
empagliflozin [Jardiance] 10 mg PO DAILY
11/15/24 12:00
Clopidogrel Bisulfate [Plavix] 75 mg PO NOON
11/15/24 18:00
Aspirin Chewable [Low Strength Aspirin] 81 mg PO QPM
Vital Signs
Initial and Last Documented VS:
Initial Vital Signs
Pulse Resp Pulse Ox
82 24 91
11/14/24 11:59 11/14/24 11:59 11/14/24 11:59
Last Documented Vital Signs
Temp Pulse Resp BP Pulse Ox
97.9 F 90 13 162/83 99
11/14/24 12:00 11/14/24 17:00 11/14/24 17:00 11/14/24 16:00 11/14/24 16:45
Epilt;Jason Irby, - Last Filed: 11/14/24 20:22>
Orders/Labs/Results
Orders:
Orders
11/14/24 12:06
CR Ankle - Left Min 3 Views Urgent
Comment:
Reason For Exam: fall, injury
CR Shoulder - Right Min 2 View Urgent
Comment:
Reason For Exam: fall, injury
11/14/24 13:22
CT Upper Ext W/o Iv Cont Rt Urgent
Comment:
Reason For Exam: fall, prox humer fx on xray, eval for dislocation
11/14/24 13:23
HYDROmorphone [Dilaudid] 0.5 mg IV NOW STA
11/14/24 13:25
Case Management Consult ONCE
Case Management Consult: Discharge Planning
11/14/24 14:42
HYDROmorphone [Dilaudid] 0.25 mg IV NOW STA
11/14/24 Dinner
Regular
11/14/24 18:06
Acetaminophen [Tylenol] 650 mg PO Q6HPRN PRN
Ice Application [Cold Application] As Directed
Location: right arm
Frequency: Intermittent q4h
Duration of Application: No longer than 20 minutes
Method of Delivery: Ice packs
Sling [Braces/Immobilizers] As Directed
Type of Brace/Immobilizer: Sling
Location for Brace/Immobilizer: right arm
Out of bed with brace/immobilizer: Yes
Instructions: take off to sleep
11/14/24 18:08
Admit/Transfer Patient As Directed
Co-Sign Provider:
Level of Care: Inpatient admission
Assign to:: Medical/Surgical
Physician / Group: harvinder borja
Diagnosis: Mechanical fall right proximal humerus fracture, left ankle sprain
Reason for Hospitalization: Mechanical fall right proximal humerus fracture, left ankle sprain
Expected length of stay greater than two midnights?: Yes
ELOS- Estimated Length of Stay in days: 3
I certify the patient meets the requirements for IP care: Yes
Code Status As Directed
Resuscitation Status: Do not resuscitate
Reached after discussion with pt or family/Healthcare POA: Yes
Based on pt advanced directive or healthcare POA form: Yes
Decision communicated with: Per patient
DNR Bracelet Application ONCE
11/14/24 18:13
PRN Pain Medication Management As Directed
May give lesser potent ordered pain med per pt: Yes
preference::
Protocol:: Medication orders for pain may be administered in a
manner that supports deferring to patient preference
when the pt is:
- Requesting an ordered lesser potent pain medication.
Least to most potent pain medications are defined
as: acetaminophen < NSAID < tramadol < opioids
(morphine, oxycodone, hydromorphone).
- Requesting a lesser dose of the same medication IF
ORDERED.
- Requesting a less intrusive route of administration
if both routes are prescribed by the provider (PO <
IV).
11/14/24 18:32
CBC/With Diff [Complete Blood Count/With Diff] Urgent
CMP [Comprehensive Metabolic Panel] Urgent
11/14/24 19:34
Midodrine [ProAmatine] 2.5 mg PO DAILYPRN PRN
Polyethylene Glycol Powder [Miralax] 17 grams PO DAILYPRN PRN
11/14/24 19:34
Activity As Directed
Activity Level: With Assistance
Pneumatic Compression Sleeves As Directed
Type: Knee high
Precautions As Directed
Type of Precautions: Other
Comment: fall
Vital Signs As Directed
Frequency: Per unit guidelines
O2 Therapy [RESP] Routine
Nasal Cannula Liter Flow: 2 LPM
Titrate/Wean O2 to maintain O2 sat greater than (%): 92
Special Instructions: Patient 2 L nasal cannula dependent at bedtime
Ot Eval And Treat Routine
Pt Eval And Treat Routine
Activity Level: With Assistance
DX Deep Vein Thrombosis Video Routine
11/14/24 20:00
Atorvastatin [Lipitor] 40 mg PO BID
Carvedilol [Coreg] 12.5 mg PO BID
Cholecalciferol (Vitamin D3) [VITAMIN D3 (cholecalciferol)] 25 mcg PO BID
Famotidine [Pepcid] 20 mg PO BID
Glimepiride [Amaryl] 4 mg PO BID
Levetiracetam [Keppra] 500 mg PO BID
Morphine Sulfate Extended Rel. [Ms Contin (Extended Release)] 15 mg PO BID@1400,2000
11/14/24 22:00
Mirtazapine [Remeron] 15 mg PO HS
Pantoprazole [Protonix] 40 mg PO HS
11/15/24 06:00
Basic Metabolic Panel IN AM
Complete Blood Count/With Diff IN AM
Morphine Sulfate Extended Rel. [Ms Contin (Extended Release)] 60 mg PO BID@0600,1800
11/15/24 08:00
Amlodipine [Norvasc] 5 mg PO DAILY
empagliflozin [Jardiance] 10 mg PO DAILY
11/15/24 12:00
Clopidogrel Bisulfate [Plavix] 75 mg PO NOON
11/15/24 18:00
Aspirin Chewable [Low Strength Aspirin] 81 mg PO QPM
Vital Signs
Initial and Last Documented VS:
Initial Vital Signs
Pulse Resp Pulse Ox
82 24 91
11/14/24 11:59 11/14/24 11:59 11/14/24 11:59
Last Documented Vital Signs
Temp Pulse Resp BP Pulse Ox
97.9 F 90 13 162/83 99
11/14/24 12:00 11/14/24 17:00 11/14/24 17:00 11/14/24 16:00 11/14/24 16:45
<Erick Rivera DO, Resident - Last Filed: 11/14/24 14:43>
MDM/Problems Addressed
Differential Diagnosis Includes:
Right shoulder fracture versus anterior right shoulder dislocation versus musculoskeletal ankle strain
MDM/Problems Addressed:
Unwitnessed mechanical fall without loss of consciousness or head strike, patient takes Plavix
Past medical history of chronic ambulatory dysfunction, history of multiple falls, and multiple fractures previously
Right shoulder appears displaced anteriorly, painful to palpation and with limited range of motion
Right shoulder x-ray and left ankle x-ray ordered
Right shoulder x-ray demonstrating acute fracture of right proximal humerus involving the humeral neck with probable extension of fracture plain into lateral aspect of humeral.
Left ankle x-ray within normal limits, no fracture
CT upper right extremity without IV contrast to evaluate fracture further, and to determine if there is any anterior dislocation present
Case management consult attempt to find SNF placement, if SNF placement not possible from emergency department will have to admit patient
Symptomatic pain management with Dilaudid IV
Patient currently requiring 2 L oxygen, uses 2 L oxygen at home during night
<Erick Rivera DO, Resident - Last Filed: 11/14/24 14:43>
*Critical Care Note
Total Time (30-74mins, 75-104mins- exclusive of procedures): Not Applicable
ED Attending Note
<Erick Rivera DO, Resident - Last Filed: 11/14/24 14:43>
-
Portions of this chart may have been created with voice recognition software.� Occasional wrong word or��sound alike� substitutions may have occurred due to the inherent limitations of voice recognition software.
<Jason Irby DO - Last Filed: 11/14/24 20:22>
ED Attending Note
I performed the substantive portion of visit, reviewed & personally made and approve the management plan that is documented in note by myself or DAVID.: Yes
I performed a history and physical exam of patient and discussed management with resident, I reviewed resident's note and agree with documented findings and plan of care.: Yes
ED Attending Note:
I agree with resident's note.
Patient presents to the ER after suffering a fall. She has significant right shoulder pain. Also left ankle pain. Patient had a recent hospitalization for falls. She was identified as being at high risk for further falls but refused skilled
nursing/rehab placement.
General: Awake, Alert, Oriented X3. Appears frail, at least stated age
Vitals: unremarkable
Head: Atraumatic
Eyes: Pupils equal, EOMI
Throat: Airway intact, no exudates
Neck: Trachea midline
Lungs: Clear and equal b/l
Heart: Regular rate, no murmurs
Abd: Soft, Nontender, No pulsatile mass
Neuro: Nonfocal
Skin: Warm, dry, no rash
Extremities: Significant swelling noted right shoulder. Tender to palpation over the left lateral malleolus. Range of motion intact without pain at bilateral hips. Right elbow right wrist intact.
X-ray shows fracture of the proximal humerus. There are some question as to whether there could be dislocation component. CT does not show any dislocation but does show impacted fracture. Attempted to have patient placed in retirement
facility as it is her dominant arm which is involved and the patient is already quite unsteady. Placement not feasible today and therefore patient will require hospitalization.
Discharge Plan
Departure
Patient Disposition: Admit
Date of Disposition: 11/14/24
Time of Disposition: 16:14
Presentation/result/management discussed w/ accepting MD/DO: Hospitalist
Condition: Fair
Discharge Problem:
Closed fracture of proximal end of right humerus, Ankle sprain
Interventions
Interventions:
*Risk Screen - Suicide Last Done: 11/14/24 11:57
*General Assessment Last Done: 11/14/24 11:57
*Neglect/Abuse Screening Last Done: 11/14/24 11:57
ED- Fall Risk Assessment Last Done: 11/14/24 11:59
*ED COVID-19 Vaccine History Last Done: 11/14/24 11:58
*Nursing Disposition Last Done: 11/14/24 19:40
ED-Musculoskeletal Assessment Last Done: 11/14/24 11:58
ED- Neurological Assessment Last Done: 11/14/24 11:58
ED-Skin Assessment Last Done: 11/14/24 11:58
Discharge Date and Time
Discharge Date/Time: 11/14/24 19:41
[2024-11-14] MEDS: DILAUDID 0.5 MG IV (14:00)
--- NOTE | 2024-11-14 14:14 | CM ---
CM was consulted for placement. CM spoke with patient. Patient lives alone. On previous admission, patient was resistant to placement. Patient reports that she has been to [facility] and [facility]. Patient would prefer [facility] for
placement. CM will continue to follow as needed.
[2024-11-14] MEDS: DILAUDID 0.25 MG IV (14:49)
--- NOTE | 2024-11-14 15:31 | CM ---
Addendum entered by Nellie Dwyer RN 11/14/24 15:35:
Son was adamant about patient not going to [facility].
Original Note:
CM spoke with patient and son Nicholas. Nicholas stated that they would prefer [facility] if possible for discharge. They would be agreeable to [facility] or [facility] if [facility] is not available. CM sent referral with preliminary information.
--- NOTE | 2024-11-14 17:00 | HPS.HSE ---
Family Physician
-
Family Physician: Andi Rasmussen
Chief Complaint
-
Fall, right arm pain, left ankle pain
History of Present Illness
84-year-old female from home, where she lives alone, who reports she was trying to get coffee and slipped on the carpet falling onto her right shoulder she denies loss of consciousness or striking her head. She does take Plavix. In the ER she was
noted to have a right proximal humerus fracture and a sprain to her left ankle. She lives alone is very frail in appearance was unable to be placed in SNF today. She denies headache, fever, chills, chest pain, palpitations, shortness breath,
cough, abdominal pain, nausea, vomiting, diarrhea, urinary symptoms. She reports her son Nicholas comes 2-3 times per day he does her food shopping washing her close and drying them since they are in the basement level and she is unable to walk up the
stairs she reports she normally goes to [facility] but is unsure why EMS brought her to [place] today. She follows with Dr. Rasmussen rheumatology at [facility] x 25 years has been on morphine she reports recently she had to switch to
[facility] who is pain management there to continue receiving her medication. She is a very poor historian she only knows she takes morphine for chronic back pain of unknown origin.
She has history of chronic pain with chronic narcotic dependence on morphine multiple times a day, fibromyalgia, rheumatoid arthritis x 25 years per patient, chronic cognitive impairment not diagnosed formally per son history of multiple fractures ,
CVA, 7 years ago HTN, HLD DM2 with diabetic neuropathy, chronic ambulatory dysfunction with multiple falls, CKD,, hypercalcemia seizure disorder, chronic hypoxia on 2 L nasal cannula at bedtime, former smoker, GERD, depression, [place]/deaf left ear
Medical History
Past Medical History
Past Medical History: Reports Other
Additional Past Medical History:
Past medical history reviewed:
Seizure disorder
Rheumatoid arthritis x 25 years
Fibromyalgia
Chronic pain syndrome narcotic dependent
Hypertension
Dyslipidemia
GERD
DM2
Chronic kidney disease stage III
Orthostatic hypotension
Mood disorder
Chronic memory impairment not formally diagnosed per son
CVA 7 years ago
Chronic ambulatory dysfunction with chronic falls
Past Surgical History: Reports Other
Additional Past Surgical History:
Right hip fracture status post ORIF
Social History
Unable to obtain full social history at this time due to: Other
Tobacco: Former Smoker (50 years 1 pack/day stopped unsure him in years)
Alcohol: None
Drug: None
Personal: Single
Living: Alone
Employment: Retired
Family History
Family History: Other
Allergies / Home Medications
Allergies reflects when Allergies were last updated in [employer].
Home Medications with original date entered in [employer]
Allergy/Medication List:
Allergies
Allergy/AdvReac Type Severity Reaction Status Date / Time
Sulfa (Sulfonamide Allergy Rash Verified 06/07/24 13:22
Antibiotics)
[Sulfa(Sulfonamide
Antibiotics)]
Home Medications
clopidogrel 75 mg tablet 75 mg PO NOON Blood Clot Prevention/Tx 03/08/16
atorvastatin 40 mg tablet 40 mg PO BID High Cholesterol 05/09/17
levetiracetam 500 mg tablet 500 mg PO BID Seizures 05/09/17
aspirin 81 mg chewable tablet 81 mg PO QPM Blood Clot Prevention/Tx 05/10/17
mirtazapine 15 mg tablet 15 mg PO HS #3 tabs 05/14/17
amlodipine 5 mg tablet 5 mg PO DAILY Blood Pressure 06/07/24
carvedilol 12.5 mg tablet 12.5 mg PO BID Blood Pressure 06/07/24
furosemide 20 mg tablet 20 mg PO DAILYPRN PRN swelling 06/07/24
midodrine 2.5 mg tablet 2.5 mg PO DAILYPRN PRN SBP<80 ##0 06/07/24
morphine 15 mg tablet,extended release 15 mg PO BID@1400,2000 Pain 06/07/24
pantoprazole 40 mg tablet,delayed release 40 mg PO HS GERD ##0 06/07/24
acetaminophen 650 mg tablet,extended release (Tylenol 8 Hour) 650 mg PO Q8HPRN PRN mild pain 11/14/24
cholecalciferol (vitamin D3) 25 mcg (1,000 unit) tablet (Vitamin D3) 25 mcg PO BID 11/14/24
empagliflozin 10 mg tablet (Jardiance) 10 mg PO DAILY 11/14/24
famotidine 20 mg tablet 20 mg PO BID 11/14/24
glimepiride 4 mg tablet 4 mg PO BID 11/14/24
morphine 60 mg tablet,extended release 60 mg PO BID@0600,1800 11/14/24
polyethylene glycol 3350 17 gram oral powder packet (Miralax) 17 g PO DAILYPRN PRN constipation 11/14/24
Review of Systems
-
History Source: Patient and Family (Son Nicholas via phone)
A 12 point ROS was completed and negative except as noted: Yes
Constitutional: Denies Fever or Chills
EENT: Denies Sore Throat or Runny Nose
Respiratory: Denies Cough or Trouble Breathing
Cardiac: Denies Chest Pain, Diaphoresis, Palpitations or Syncope
Abdomen/GI: Denies Abdominal Pain, Nausea, Vomiting, Diarrhea, Constipated, Bloody Stools or Black Stools
: Denies Dysuria, Frequency, Flank Pain, Incontinence, Difficulty Voiding, Urgency or Dark Urine
Musculoskeletal: Reports Joint Pain (Right humerus swollen with limited range of motion secondary to fracture)
Skin: Denies Itching or Rash
Neurological: Denies Dizzy or Headache
Endocrine: Reports No Symptoms
Hematologic/Lymphatic: Reports No Symptoms
Psych: Reports Calm
Physical Exam
Vital Signs
Vital Signs
Temp Pulse Resp BP Pulse Ox
97.9 F 87 18 157/76 91
11/14/24 12:00 11/14/24 14:32 11/14/24 14:32 11/14/24 14:32 11/14/24 14:32
Physical Exam
General: Conversant and Pain; No Fever or Chills
HEENT: NormoCephalic, Anicteric, Moist mucous membranes, PERRLA, [place] Conjunctivae and No Ptosis
Respiratory: Clear; No Wheezes, Rales or Rhonchi
Cardiac: S1/S2 and Regular Rhythm; No Murmur, Rub, Gallop or Peripheral Edema
GI: Soft, Non Tender, Non Distended, Normal Bowel Sounds and No Hepatosplenomegaly
Rectal: Deferred by Provider
Genito-urinary: Deferred by me
Musculoskeletal: No Clubbing, No Cyanosis, No Edema and Other (Right humerus swollen with limited range of motion secondary to fracture)
Skin: Warm and Dry; No Rash or Jaundice
Neuro: Awake, Alert, Oriented (To name and only her back history +'s name), No Sensory Deficits and Other (Limited range of motion right arm); No Slurred Speech, Facial Droop, Tremors or Sedated
Psych: Calm
Data Reviewed
-
Diagnostic Radiology: Report Reviewed by me
Lab Data: Labs Reviewed by me
Impression/Plan
-
Impression/plan:
Admit to [facility]
#Mechanical fall with Right proximal humerus fracture and left ankle sprain
-Sling to right upper extremity
-Tylenol as needed mild pain, ice as needed
-Continue patient's current pain regimen morphine ER 60 mg twice daily with 15 mg IR at 2 PM
-Consult PT/OT/case management for SNF for rehab placement as patient lives alone
CT right upper extremity: Comminuted fracture of the right proximal humerus with angulation, impaction and mild displacement
Right upper lobe tree-in-bud nodules suggesting inflammatory/infectious process
#Hx rheumatoid arthritis x25 years
#Hx fibromyalgia with chronic lower back pain
#Hx chronic pain with chronic narcotic dependence
-Continue morphine 60 mg at 0600, 1800, morphine IR 15 mg 1400,2000
-Continue MiraLAX 17 g daily as needed
#HTN�benign
#Hx orthostatic hypotension
BP 162/83
-Continue amlodipine 5 mg daily, carvedilol 12.5 mg twice daily,
Continue midodrine 2.5 mg daily SBP<80
#cognitive impairment chronic not formally diagnosed by her son
-Patient unsure of majority of her history except her back pain and morphine
#Chronic hypoxia on 2 L nasal cannula at bedtime
#Former smoker 50 years 1 pack/day stopped unknown years
#DM 2
Accu-Cheks with SSI, check HgbA1c
Continue glimepiride 4 mg p.o. twice daily
#GERD
-Continue famotidine 20 mg twice daily, Protonix 40 mg at bedtime
#HLD
-Continue atorvastatin 40 mg twice daily
#CVA approx 7 years
- cont plavix, asa 81mg , lipitor 40 mg bid ? so states she is on bid I made him aware I will adjust this dose down to 40 mg once a day
#History of seizures
-Patient is unsure of her history of seizures or when they occurred i spoke with the pt's son Nicholas he does not know of when or why she had a seizure
He states she has been on 1.[address] nitin Chen all meds except morphine
-Continue Keppra 500 mg twice daily
#Depression
-Continue mirtazapine 15 mg at bedtime
#[place]/deaf left ear
-Hearing aids bilateral ears present
#Chronic ambulatory dysfunction uses walker at baseline
#History of chronic falls
DVT prophylaxis
SCDs
DNR per patient and son Nicholas via phone
-
[2024-11-14 18:37] LABS: % Basophils 0.3 % (0-2); % Eosinophils 3.2 % (0-6); % Immature Granulocytes 0.3 % (0-0.5); % Lymphocytes 18.2 % (20.5-51.1); % Monocytes 8.2 % (1.7-9.3); % Neutrophils 69.8 % (42.2-75.2); Absolute Eosinophils 0.3 10^3/uL (0-0.7); Absolute Lymphocytes 1.6 10^3/uL (1.2-3.4); Absolute Monocytes 0.7 10^3/uL (0.1-0.6); Absolute Neutrophils 6.1 10^3/uL (1.4-6.5); Hematocrit 35.5 % (37.0-47.0); Hemoglobin 10.7 g/dL (12.0-16.0); Mean Corp Hgb Conc. 30.1 g/dL (33.0-37.0); Mean Corpuscular Hgb 26.9 pg (27.0-31.0); Mean Corpuscular Volume 89.2 fL (81.0-99.0); Nucleated Red Blood Cells % 0 %; Platelet Count 166 10^3/uL (130-400); Red Blood Cell Count 3.98 10^6/uL (4.20-5.40); Red Cell Dist. Width 15.4 % (11.5-14.5); White Blood Cell Count 8.7 10^3/uL (4.8-10.8)
--- NOTE | 2024-11-14 18:49 | W.PN.UPDATE ---
Update Note
Progress Note Update
I could not get any information from the patient is proabaly demented
Information gathered by chart review and speaking with the ER staff, MANAGER [employer]PERATIONS
This note serves as an addendum to the H&P by general contractor DAVID Marcia HANSEN
HPI
84F former smoker, chr narcotic dependent pain syndrome e, cognitive disorder who Lives alone @ home seen at ER
- slipped and fall on Lt shoulder on the carpet
- denies loss of consciousness or striking her head.
- on chronic Plavix.
- ER evaluation noted POS XR for Rt. proximal humerus fracture and a sprain to her left ankle.
Of note: very poor historian she only knows she takes morphine for chronic back pain of unknown origin.
PHX
chronic pain with chronic narcotic dependence on morphine multiple times a day
Fibromyalgia
Rheumatoid arthritis x 25 years per patient
Chronic cognitive impairment not diagnosed formally per son
HX multiple falls complicated by fractures
CVA, 7 years ago
HTN
HLD
DM2 with diabetic neuropathy
chronic ambulatory dysfunction with multiple falls
CKD
Hypercalcemia
Seizure disorder
Chronic hypoxia on 2 L nasal cannula at bedtime
former smoker
GERD depression
KAIBAB- deaf left ear
Reviewed VS:
Vital Signs
Temp Pulse Resp BP Pulse Ox
97.9 F 90 13 162/83 99
11/14/24 12:00 11/14/24 17:00 11/14/24 17:00 11/14/24 16:00 11/14/24 16:45
PE
General: Conversant
HEENT: Normo Cephalic, Anicteric, Moist mucous membranes, PERRLA
Respiratory: Clear; No Wheezes, Rales or Rhonchi
Cardiac: S1/S2 and Regular Rhythm; No Murmur, Rub, Gallop or Peripheral Edema
GI: Soft, Non Tender, Non Distended, Normal Bowel Sounds and No Hepatosplenomegaly
Rectal: Deferred by Provider
Genito-urinary: Deferred by me
Musculoskeletal:Right humerus swollen with limited range of motion secondary to fracture
Skin: Warm and Dry; No Rash or Jaundice
Neuro: Awake, Alert, Oriented (To name and only her back history +'s name)
Psych: Calm
Data
Pending admissions Lab
CT Upper Ext W/o Iv Cont Rt
1. Comminuted fracture of the right proximal humerus with angulation, impaction, and mild displacement.
2. No evidence for dislocation.
3. Right upper lobe tree-in-bud nodules suggesting an inflammatory/infectious process.
XR 4 views of the Rt shoulder
- Acute fracture of the right proximal humerus involving the humeral neck. Probable extension of the fracture plane into the lateral aspect of the humeral head. Some apparent anterior displacement of the distal fracture fragment on the scapular Y
views, which are limited by patient positioning.
- Moderate acromioclavicular osteoarthrosis.
ASSESSMENT & PLAN
Mechanical fall c/w Rt. proximal humerus Fx. and left ankle sprain
- Arm sling to Rt upper extremity
- Fx set protocol for pain control, BW regime
- c/w current pain regimen morphine ER 60 mg twice daily with 15 mg IR at 2 PM
- Consult PT/OT/case management for SNF for rehab placement as patient lives alone
HX rheumatoid arthritis
HX fibromyalgia with chronic lower back pain
HX chronic pain with chronic narcotic dependence
- on MANAGEMENT LIAISON morphine 60 mg at 0600, 1800, morphine IR 15 mg 1400,2000
- on MANAGEMENT LIAISON MiraLAX 17 g daily as needed
- f/u by Dr Rob for RA at [facility] and Dr Rodriguez for chr pain
Benign HTN
HX orthostatic hypotension
- on MANAGEMENT LIAISON amlodipine , carvedilol
- on MANAGEMENT LIAISON midodrine 2.5 mg daily SBP<80
Undiagnosed Dementia with HX cognitive impairment chronic not formally diagnosed by her son;
- OT consult for BCAT
HX Chronic hypoxic RF on home 2 L NC O2 HS
Former smoker 50 years 1 pack/day stopped unknown years
DM 2
- add ISS low
- on MANAGEMENT LIAISON glimepiride 4 mg p.o. twice daily
HX GERD
- cont famotidine 20 mg twice daily, Protonix 40 mg at bedtime
HLD
- Continue atorvastatin 40 mg twice daily
CVA approx 7 years
- on DAPL
- KNUCKLER lipitor
HX Sz unclear chronicity
- Dr Torres Chen all Meds except morphine
- Continue Keppra 500 mg twice daily
Depression
-Continue mirtazapine HS
KAIBAB/deaf left ear
- Hearing aids bilateral ears present
Chronic ambulatory dysfunction uses walker at baseline
HX multple recurrent falls
DVT prophylaxis: SCD
DNR per patient and son Nicholas via phone
IP MS
[2024-11-14 18:55] LABS: ALT (SGPT) 30 U/L (0-35); AST (SGOT) 48 U/L (14-36); Albumin 4.1 g/dl (3.5-5.0); Alkaline Phosphatase 106 U/L (38-126); Blood Urea Nitrogen 31 mg/dl (7-17); Calcium 9.1 mg/dl (8.4-10.2); Carbon Dioxide 30 mmol/L (22-30); Chloride 99 mmol/L (98-107); Estimated Creatinine Clearance 18 ml/min; Glucose 155 mg/dl (70-99); Potassium 4.4 mmol/L (3.5-5.1); Sodium 137 mmol/L (135-145); Total Bilirubin 0.6 mg/dl (0.2-1.3); Total Protein 7.1 g/dl (6.3-8.2); eGFR 27.27
--- NOTE | 2024-11-14 19:45 | PTCARENOTE ---
[facility] to [facility] from [facility] via stretcher, assisted into bed. Pt AAOx3, oriented to room and plan of care at this time. R arm in sling maintained. VSS. Assessment on going.
[2024-11-14 21:17] LABS: Glucose - Point of Care 166 mg/dl (70-99)
[2024-11-14] MEDS: COREG 12.5 MG PO (21:39)
[2024-11-14] MEDS: KEPPRA 500 MG PO (21:39)
[2024-11-14] MEDS: VITAMIN D3 (cholecalciferol) 25 MCG PO (21:39)
[2024-11-14] MEDS: LIPITOR 40 MG PO (21:40)
[2024-11-14] MEDS: REMERON 15 MG PO (21:40)
[2024-11-14] MEDS: PROTONIX 40 MG PO (21:40)
[2024-11-14] MEDS: PEPCID 20 MG PO (21:40)
[2024-11-14] MEDS: MS CONTIN (EXTENDED RELEASE) 15 MG PO (21:40)
[2024-11-14] MEDS: AMARYL PO (21:53)
[2024-11-15] MEDS: MS CONTIN (EXTENDED RELEASE) 60 MG PO ×2 (05:22→17:06)
[2024-11-15 05:35] LABS: % Basophils 0.3 % (0-2); % Eosinophils 0.4 % (0-6); % Immature Granulocytes 0.5 % (0-0.5); % Lymphocytes 15.5 % (20.5-51.1); % Monocytes 7.7 % (1.7-9.3); % Neutrophils 75.6 % (42.2-75.2); Absolute Eosinophils 0.1 10^3/uL (0-0.7); Absolute Immature Granulocytes 0.1 10^3/uL (0-0.05); Absolute Lymphocytes 1.8 10^3/uL (1.2-3.4); Absolute Monocytes 0.9 10^3/uL (0.1-0.6); Absolute Neutrophils 8.6 10^3/uL (1.4-6.5); Hemoglobin 11.5 g/dL (12.0-16.0); Mean Corp Hgb Conc. 31.1 g/dL (33.0-37.0); Mean Corpuscular Volume 86.9 fL (81.0-99.0); Mean Platelet Volume 10.2 fL (7.4-10.4); Nucleated Red Blood Cells % 0 %; Platelet Count 146 10^3/uL (130-400); Red Blood Cell Count 4.26 10^6/uL (4.20-5.40); Red Cell Dist. Width 15.1 % (11.5-14.5); White Blood Cell Count 11.4 10^3/uL (4.8-10.8)
[2024-11-15 06:01] LABS: Blood Urea Nitrogen 28 mg/dl (7-17); Calcium 9.8 mg/dl (8.4-10.2); Carbon Dioxide 29 mmol/L (22-30); Chloride 99 mmol/L (98-107); Estimated Creatinine Clearance 19 ml/min; Glucose 139 mg/dl (70-99); Potassium 5.9 mmol/L (3.5-5.1); Sodium 138 mmol/L (135-145); eGFR 29.21
[2024-11-15 07:40] VITALS: BP 147/75
[2024-11-15] MEDS: VITAMIN D3 (cholecalciferol) 25 MCG PO ×2 (08:26→20:03)
[2024-11-15] MEDS: KEPPRA 500 MG PO ×2 (08:26→20:03)
[2024-11-15] MEDS: FARXIGA 10 MG PO (08:26)
[2024-11-15] MEDS: LIPITOR 40 MG PO ×2 (08:26→20:03)
[2024-11-15] MEDS: COREG 12.5 MG PO ×2 (08:27→20:03)
[2024-11-15] MEDS: NORVASC 5 MG PO (08:27)
[2024-11-15] MEDS: AMARYL 4 MG PO ×2 (08:30→17:06)
[2024-11-15 08:31] LABS: Glucose - Point of Care 132 mg/dl (70-99)
--- NOTE | 2024-11-15 09:20 | W.PN.HOSP.TC ---
Today's Communication/Plan
-
Pain control. PT OT
Assessment / Plan
Assessment / Plan
Physical exam:
General: Chronically ill
HEENT: Normocephalic, Atraumatic and Moist Mucous Membranes
Respiratory: Clear to Auscultation; Negative Wheezes, Rales or Rhonchi
Cardiac: Regular Rhythm and S1/S2
GI: Soft, Nontender and Nondistended
Musculoskeletal: Right shoulder pain and in a sling. Left ankle discomfort. No Clubbing, No Cyanosis and No Edema
Neuro: Awake, Alert and Oriented
Psych: Calm
A/P:
#Mechanical fall with Right proximal humerus fracture and left ankle sprain
-Sling to right upper extremity
-Tylenol as needed mild pain, ice as needed
-Continue patient's current pain regimen morphine ER 60 mg twice daily with 15 mg IR at 2 PM
-Consult PT/OT/case management for SNF for rehab placement as patient lives alone
-Discussed with orthopedic on-call Dr. Raman Bautista and recommend to continue sling and have her follow-up outpatient in 10 to 14 days.
-Discussed with son over the phone today 11/15
CT right upper extremity: Comminuted fracture of the right proximal humerus with angulation, impaction and mild displacement
Right upper lobe tree-in-bud nodules suggesting inflammatory/infectious process
#Hx rheumatoid arthritis x25 years
#Hx fibromyalgia with chronic lower back pain
#Hx chronic pain with chronic narcotic dependence
-Continue morphine 60 mg at 0600, 1800, morphine IR 15 mg 1400,2000
-Continue MiraLAX 17 g daily as needed
#HTN�benign
#Hx orthostatic hypotension
BP 162/83
-Continue amlodipine 5 mg daily, carvedilol 12.5 mg twice daily,
Continue midodrine 2.5 mg daily SBP<80
#cognitive impairment chronic not formally diagnosed by her son
-Patient unsure of majority of her history except her back pain and morphine
#Chronic hypoxia on 2 L nasal cannula at bedtime
#Former smoker 50 years 1 pack/day stopped unknown years
#DM 2
Accu-Cheks with SSI, check HgbA1c
Continue glimepiride 4 mg p.o. twice daily
#GERD
-Continue famotidine 20 mg twice daily, Protonix 40 mg at bedtime
#HLD
-Continue atorvastatin 40 mg twice daily
#CVA approx 7 years
- cont plavix, asa 81mg , lipitor 40 mg bid ? so states she is on bid I made him aware I will adjust this dose down to 40 mg once a day
#History of seizures
-Patient is unsure of her history of seizures or when they occurred i spoke with the pt's son Nicholas he does not know of when or why she had a seizure
He states she has been on 1.[address] nitin Chen all meds except morphine
-Continue Keppra 500 mg twice daily
#Depression
-Continue mirtazapine 15 mg at bedtime
#[place]/deaf left ear
-Hearing aids bilateral ears present
#Chronic ambulatory dysfunction uses walker at baseline
#History of chronic falls
DVT prophylaxis
SCDs
DNR
Anticipated Discharge: > 48 hours
Subjective/Interval History
-
Date of Service: November 15, 2024
Patient complains of pain on right shoulder. Discomfort on left ankle. She is alert and she is upset on how she fell but she knows exactly how it happened. No syncope.
Objective Data
-
Labs:
Laboratory Results
11/15/24
05:09
WBC 11.4 H
Hgb 11.5 L
Hct 37.0
Plt Count 146
Sodium 138
Potassium 5.9 H D
Chloride 99
Carbon Dioxide 29
BUN 28 H
Creatinine 1.7 H
Glucose 139 H
Calcium 9.8
Vital Signs:
Vital Signs
Temp Pulse Resp BP Pulse Ox
97.9 F 90 16 147/75 92
11/15/24 07:40 11/15/24 08:27 11/15/24 07:40 11/15/24 08:27 11/15/24 07:40
I&O
11/14/24 11/15/24 11/16/24
06:59 06:59 06:59
Intake Total 150 / 150
Balance 150 / 150
--- NOTE | 2024-11-15 11:09 | CM ---
Addendum entered by Vielka Pinedo 11/15/24 15:40:
CM spoke with patient son and Daughter in law. Reviewed referrals and Medicare.gov, given list. Confirmed referrals and given information about short term care application with [facility]. Patient son with concerns, CM tt to nursing supervisor area at his
request. CM will continue to follow for discharge planning needs.
Original Note:
Patient seen at bedside, per chart review referrals sent to [facility] and patient states that her son is the primary decision maker. CM will continue to follow for discharge planning needs.
Plan; SNF; pending acceptance/ insurance auth
[2024-11-15 11:22] VITALS: BP 107/60; BP 116/63
[2024-11-15 11:48] VITALS: BP 108/59; PULSE 85
[2024-11-15] MEDS: PLAVIX 75 MG PO (12:18)
[2024-11-15] MEDS: MS CONTIN (EXTENDED RELEASE) 15 MG PO ×2 (14:07→20:02)
[2024-11-15 15:40] VITALS: BP 142/69
[2024-11-15 16:52] LABS: Glucose - Point of Care 201 mg/dl (70-99)
[2024-11-15] MEDS: LOW STRENGTH ASPIRIN 81 MG PO (17:06)
[2024-11-15] MEDS: REMERON 15 MG PO (21:56)
[2024-11-15] MEDS: PEPCID 20 MG PO (21:56)
[2024-11-15] MEDS: PROTONIX 40 MG PO (21:56)
[2024-11-15 23:50] VITALS: BP 136/71
[2024-11-16] MEDS: MS CONTIN (EXTENDED RELEASE) 60 MG PO ×2 (05:33→17:05)
[2024-11-16 05:45] LABS: Hematocrit 31.9 % (37.0-47.0); Hemoglobin 10.1 g/dL (12.0-16.0); Mean Corp Hgb Conc. 31.7 g/dL (33.0-37.0); Mean Corpuscular Hgb 26.8 pg (27.0-31.0); Mean Corpuscular Volume 84.6 fL (81.0-99.0); Mean Platelet Volume 10.4 fL (7.4-10.4); Platelet Count 135 10^3/uL (130-400); Red Blood Cell Count 3.77 10^6/uL (4.20-5.40); Red Cell Dist. Width 15.2 % (11.5-14.5); White Blood Cell Count 9.8 10^3/uL (4.8-10.8)
[2024-11-16 06:10] LABS: Blood Urea Nitrogen 38 mg/dl (7-17); Calcium 9.4 mg/dl (8.4-10.2); Carbon Dioxide 29 mmol/L (22-30); Chloride 101 mmol/L (98-107); Estimated Creatinine Clearance 18 ml/min; Glucose 101 mg/dl (70-99); Potassium 4.5 mmol/L (3.5-5.1); Sodium 136 mmol/L (135-145); eGFR 27.27
[2024-11-16 07:30] VITALS: BP 115/64
--- NOTE | 2024-11-16 08:25 | W.PN.HOSP.TC ---
Today's Communication/Plan
-
Pain control. PT OT.
Assessment / Plan
Assessment / Plan
Physical exam:
General: Chronically ill
HEENT: Normocephalic, Atraumatic and Moist Mucous Membranes
Respiratory: Clear to Auscultation; Negative Wheezes, Rales or Rhonchi
Cardiac: Regular Rhythm and S1/S2
GI: Soft, Nontender and Nondistended
Musculoskeletal: Right shoulder pain and in a sling. Left ankle discomfort but able to move around and bear weight. No Clubbing, No Cyanosis and No Edema
Neuro: Awake, Alert and Oriented, no gross neurological deficits. Generalized weakness
Psych: Calm
A/P:
Mechanical fall and right proximal humeral fracture left ankle sprain:
Continue pain control
PT OT eval
Discussed with orthopedic on-call yesterday, Dr. Raman Bautista and recommended to continue sling and have her follow-up outpatient in 10 to 14 days.
Discussed with son over the phone yesterday
batch and furnace manager for discharge disposition
Hypertension:
Continue amlodipine 5 mg p.o. daily
Continue carvedilol 12.5 mg twice a day
Hyperlipidemia:
Continue atorvastatin 40 mg p.o. twice a day
Diabetes mellitus type 2:
On glimepiride 4 mg p.o. twice a day
On Farxiga 10 mg/day
Diabetic diet
Insulin sliding scale
Update hemoglobin A1c
History of CVA:
Continue antiplatelet and statin
Chronic hypoxic respiratory failure on home oxygen:
Continue usual oxygen (2 L at home)
Seizure disorder:
Continue Keppra 500 mg twice a day
Depression:
Continue Remeron
Chronic pain medication with chronic narcotic dependence:
Continue her home doses of narcotics including MS Contin 60 mg twice a day and MS Contin extended release 15 mg twice a day
On bowel regimen as needed and will add some scheduled
History of orthostatic hypotension:
On midodrine as needed
Rheumatoid arthritis:
Not on DMARD agents
GERD:
On Protonix and Pepcid
Anemia:
Monitor hemoglobin
Hyperkalemia:
Resolved
CKD stage IV:
Creatinine 1.8 today
Avoid nephrotoxics
Monitor renal function
DVT prophylaxis:
SCDs and add heparin SQ
CODE STATUS:
DNR
Anticipated Discharge: 24 - 48 hours
Subjective/Interval History
-
Date of Service: November 16, 2024
Patient complains of moderate amount of pain but relieved with some of the pain medications. No nausea or vomiting. No chest pain or shortness of breath.
Objective Data
-
Labs:
Laboratory Results
11/16/24
05:27
WBC 9.8
Hgb 10.1 L
Hct 31.9 L
Plt Count 135
Sodium 136
Potassium 4.5
Chloride 101
Carbon Dioxide 29
BUN 38 H
Creatinine 1.8 H
Glucose 101 H
Calcium 9.4
Vital Signs:
Vital Signs
Temp Pulse Resp BP Pulse Ox
97.9 F 77 16 115/64 93
11/16/24 07:30 11/16/24 07:30 11/16/24 07:30 11/16/24 07:30 11/16/24 07:30
I&O
11/15/24 11/16/24 11/17/24
06:59 06:59 06:59
Intake Total 150 / 150 480 / 480
Balance 150 / 150 480 / 480
[2024-11-16] MEDS: NORVASC 5 MG PO (09:24)
[2024-11-16] MEDS: KEPPRA 500 MG PO ×2 (09:24→20:11)
[2024-11-16] MEDS: AMARYL 4 MG PO ×2 (09:24→17:00)
[2024-11-16] MEDS: VITAMIN D3 (cholecalciferol) 25 MCG PO ×2 (09:24→20:11)
[2024-11-16] MEDS: FARXIGA 10 MG PO (09:24)
[2024-11-16] MEDS: COREG 12.5 MG PO ×2 (09:24→20:12)
[2024-11-16] MEDS: LIPITOR 40 MG PO ×2 (09:25→20:11)
[2024-11-16] MEDS: TYLENOL 650 MG PO (09:32)
[2024-11-16 12:41] LABS: Glucose - Point of Care 231 mg/dl (70-99)
[2024-11-16] MEDS: NOVOLOG FLEXPEN-LOW RESISTANCE 2 UNITS SC (12:51)
[2024-11-16] MEDS: PLAVIX 75 MG PO (12:55)
[2024-11-16] MEDS: MS CONTIN (EXTENDED RELEASE) 15 MG PO ×2 (13:00→20:11)
[2024-11-16] MEDS: SENOKOT-S PO (13:01)
[2024-11-16 13:06] VITALS: BP 99/54; PULSE 74
[2024-11-16 15:00] VITALS: BP 133/67
[2024-11-16 16:56] LABS: Glucose - Point of Care 137 mg/dl (70-99)
[2024-11-16] MEDS: HEPARIN 5000 UNITS SC ×2 (17:00→23:48)
[2024-11-16] MEDS: NOVOLOG FLEXPEN-LOW RESISTANCE SC (17:00)
[2024-11-16] MEDS: LOW STRENGTH ASPIRIN 81 MG PO (17:00)
[2024-11-16] MEDS: SENOKOT-S 1 TABLET PO (20:11)
[2024-11-16] MEDS: PROTONIX 40 MG PO (21:19)
[2024-11-16] MEDS: REMERON 15 MG PO (21:20)
[2024-11-16] MEDS: PEPCID 20 MG PO (21:20)
[2024-11-16 23:25] VITALS: BP 102/56
[2024-11-17] MEDS: MS CONTIN (EXTENDED RELEASE) 60 MG PO ×2 (05:45→17:00)
[2024-11-17 07:00] VITALS: BP 118/54
[2024-11-17 07:08] LABS: Hematocrit 33.6 % (37.0-47.0); Hemoglobin 10.7 g/dL (12.0-16.0); Mean Corp Hgb Conc. 31.8 g/dL (33.0-37.0); Mean Corpuscular Hgb 27.2 pg (27.0-31.0); Mean Corpuscular Volume 85.5 fL (81.0-99.0); Mean Platelet Volume 10.2 fL (7.4-10.4); Platelet Count 144 10^3/uL (130-400); Red Blood Cell Count 3.93 10^6/uL (4.20-5.40); Red Cell Dist. Width 15.3 % (11.5-14.5); White Blood Cell Count 9.5 10^3/uL (4.8-10.8)
[2024-11-17 07:25] LABS: Blood Urea Nitrogen 49 mg/dl (7-17); Calcium 9.7 mg/dl (8.4-10.2); Carbon Dioxide 30 mmol/L (22-30); Chloride 101 mmol/L (98-107); Estimated Creatinine Clearance 15 ml/min; Glucose 92 mg/dl (70-99); Potassium 4.6 mmol/L (3.5-5.1); Sodium 138 mmol/L (135-145); eGFR 22.66
[2024-11-17 09:07] LABS: Glycohemoglobin (HgbA1c) 7.4 % (4.0-5.6)
--- NOTE | 2024-11-17 09:13 | PN.CDI ---
Addendum entered and electronically signed by Leonel Martin MD 11/18/24 12:15:
only traumatic fracture
Original Note:
CDI
- -
CDI:
Physician Documentation Request
Admit Date: 11/14/24 18:22
Dear Doctor Mario,
Please review the following and provide your response in the progress notes.
Clinical Indicators:
H+P, 11/14
#...reports she was trying to get coffee and slipped on the carpet falling
#...onto her right shoulder she denies loss of consciousness or striking her head.
#...She does take Plavix.
#...In the ER she was noted to have a right proximal humerus fracture
#...and a sprain to her left ankle.
#Mechanical fall with Right proximal humerus fracture and left ankle sprain
#...-Sling to right upper extremity
Please provide further etiology/specificity regarding the diagnosis of right proximal humerus fracture:
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
Traumatic fracture only
Other (please specify)
Etiology
Traumatic
Pathologic due to osteoporosis
Pathologic due to neoplastic disease
Pathologic due to other disease (please specify)
Due to a combination of trauma and a pathological process
but the trauma alone would not likely have been sufficient
to cause the fracture
Use of terms such as suspected, likely, concern for, or probable (associated with a specific diagnosis that is being evaluated, monitored, or treated as if it exists) are acceptable and can be coded in the inpatient setting, when documented at the
time of discharge.
Thank you,
Shiela Vilchis RN BSN CCDS
CDI Specialist
please contact via tiger text
Please use your independent medical judgment in providing your response.
[2024-11-17] MEDS: VITAMIN D3 (cholecalciferol) 25 MCG PO ×2 (09:26→19:42)
[2024-11-17] MEDS: TYLENOL 650 MG PO (09:26)
[2024-11-17] MEDS: FARXIGA PO (09:26)
[2024-11-17] MEDS: LIPITOR 40 MG PO ×2 (09:26→19:42)
[2024-11-17] MEDS: NORVASC 5 MG PO (09:27)
[2024-11-17] MEDS: HEPARIN 5000 UNITS SC ×3 (09:27→23:59)
[2024-11-17] MEDS: NOVOLOG FLEXPEN-LOW RESISTANCE SC ×3 (09:27→17:00)
[2024-11-17] MEDS: AMARYL 4 MG PO ×2 (09:27→17:00)
[2024-11-17] MEDS: KEPPRA 500 MG PO ×2 (09:27→19:41)
[2024-11-17] MEDS: COREG 12.5 MG PO ×2 (09:27→19:42)
[2024-11-17 09:29] LABS: Glucose - Point of Care 95 mg/dl (70-99)
[2024-11-17] MEDS: NSS 1000 IV ×2 (09:29→22:12)
[2024-11-17] MEDS: SENOKOT-S PO (09:29)
[2024-11-17 11:07] VITALS: BP 88/46; PULSE 72; O2SAT 92
--- NOTE | 2024-11-17 12:20 | CM ---
Chart reviewed
Following ED
SNF at discharge - [facility] pending bed availability, [facility] - unable to accept - no bed, [facility] - does not accept insurance
Will need auth
Plan - SNF when medically ready
[2024-11-17] MEDS: PLAVIX 75 MG PO (12:47)
[2024-11-17 12:52] LABS: Glucose - Point of Care 124 mg/dl (70-99)
[2024-11-17] MEDS: MS CONTIN (EXTENDED RELEASE) 15 MG PO ×2 (13:23→19:42)
--- NOTE | 2024-11-17 14:23 | W.PN.HOSP.TC ---
Today's Communication/Plan
-
follow Cr
Assessment / Plan
Assessment / Plan
84yo F with PMHx of HTN, CAD, DM, HLD, seizures, insomnia, orthostatic hypotension, GERD, Hx of CVA, chronic hypoxic respiratory failure on 2L home O2 came after fall without LOC with R proximal humeral Fx and L ankle sprain. As per ortho -advised
to be managed conservatively. Developed ED
A/P:
#Acute R proximal humeral Fx
#L ankle sprain
#Fall without LOC
Ortho followed: sling and outpatient follow up in 2 weeks
pain mgmt
#ED
most likely dehydration
IVF, hold SGLT-2 inh
follow Cr
#DM type 2 with nephropathy
Accuchecks, Insulin SS, DM diet
#Calcified L thyrpoid nodule
US as outpatient
check TSH
#HLD
#Hx of CVA
#Chronic hypoxic respiratory failure
#Hypertension with orthostatic hypotension
#Chronic pain with opioid dependency
#RA
#GERD
cont home meds
#Right upper lobe tree-in-bud nodules suggesting an inflammatory/infectious process
No fever no leukocytosis
most likely changes 2/2 RA
check procal
#Mild chronic anemia
follow up with PCP
DVT ppx hep
DNR/DNI
I have spent at least 36min reviewing chart, test results, communication with consultants and direct patient care
Anticipated Discharge: 24 - 48 hours
Subjective/Interval History
-
Date of Service: November 17, 2024
Objective Data
-
Labs:
Laboratory Results
11/17/24
06:13
WBC 9.5
Hgb 10.7 L
Hct 33.6 L
Plt Count 144
Sodium 138
Potassium 4.6
Chloride 101
Carbon Dioxide 30
BUN 49 H
Creatinine 2.1 H
Glucose 92
Calcium 9.7
Vital Signs:
Vital Signs
Temp Pulse Resp BP Pulse Ox
97.9 F 81 18 118/54 93
11/17/24 07:00 11/17/24 09:27 11/17/24 07:00 11/17/24 09:27 11/17/24 08:00
I&O
11/16/24 11/17/24 11/18/24
06:59 06:59 06:59
Intake Total 480 / 480 1000 / 1000
Balance 480 / 480 1000 / 1000
Review of Systems
-
History Source: Patient
All other systems: Reviewed and negative
Physical Exam
-
General: No Apparent Distress
HEENT: Normocephalic
Respiratory: Clear to Auscultation
GI: Soft, Nontender and Nondistended
Neuro: Awake, Alert, Oriented and AO x 3
Psych: Calm
[2024-11-17 15:00] VITALS: BP 108/53
[2024-11-17 16:51] LABS: Glucose - Point of Care 123 mg/dl (70-99)
[2024-11-17] MEDS: LOW STRENGTH ASPIRIN 81 MG PO (17:00)
[2024-11-17] MEDS: SENOKOT-S 1 TABLET PO (19:42)
[2024-11-17 21:38] LABS: Glucose - Point of Care 108 mg/dl (70-99)
[2024-11-17] MEDS: PROTONIX 40 MG PO (22:12)
[2024-11-17] MEDS: REMERON 15 MG PO (22:12)
[2024-11-17 23:45] VITALS: BP 128/67
[2024-11-18] MEDS: MS CONTIN (EXTENDED RELEASE) 60 MG PO ×2 (06:04→17:11)
[2024-11-18 07:00] VITALS: BP 134/63
[2024-11-18 07:23] LABS: TSH Reflex To Free T4 1.89 uIU/ml (0.47-4.68)
[2024-11-18 07:28] LABS: Procalcitonin 0.07 ng/ml (0.0-0.25)
[2024-11-18 08:12] LABS: Glucose - Point of Care 62 mg/dl (70-99)
[2024-11-18 08:12] LABS: Glucose - Point of Care 65 mg/dl (70-99)
[2024-11-18 08:28] LABS: Glucose - Point of Care 84 mg/dl (70-99)
[2024-11-18] MEDS: HEPARIN 5000 UNITS SC ×2 (08:28→16:49)
[2024-11-18] MEDS: AMARYL 4 MG PO ×2 (08:29→16:50)
[2024-11-18] MEDS: COREG 12.5 MG PO (08:29)
[2024-11-18] MEDS: VITAMIN D3 (cholecalciferol) 25 MCG PO (08:29)
[2024-11-18] MEDS: LIPITOR 40 MG PO (08:29)
[2024-11-18] MEDS: KEPPRA 500 MG PO (08:29)
[2024-11-18] MEDS: NOVOLOG FLEXPEN-LOW RESISTANCE SC ×2 (08:29→17:11)
[2024-11-18] MEDS: NORVASC 5 MG PO (08:29)
[2024-11-18] MEDS: SENOKOT-S PO (08:30)
[2024-11-18 09:50] LABS: Blood Urea Nitrogen 46 mg/dl (7-17); Calcium 9.1 mg/dl (8.4-10.2); Carbon Dioxide 22 mmol/L (22-30); Chloride 103 mmol/L (98-107); Estimated Creatinine Clearance 18 ml/min; Glucose 122 mg/dl (70-99); Potassium 4.7 mmol/L (3.5-5.1); Sodium 136 mmol/L (135-145); eGFR 27.27
[2024-11-18 10:33] LABS: Glucose - Point of Care 115 mg/dl (70-99)
[2024-11-18 11:19] VITALS: BP 97/51; PULSE 75; O2SAT 95
[2024-11-18] MEDS: TYLENOL 650 MG PO (11:22)
[2024-11-18] MEDS: PLAVIX 75 MG PO (11:22)
--- NOTE | 2024-11-18 11:24 | CM ---
Reviewed the chart notes. CM left voice message with Mary Kate at [facility] regarding bed availability. [facility] not in network and [facility] no beds available. CM continues to be available to patient/family and is monitoring medical plan for needs at discharge.
Plan: Discharge to SNF/rehab once bed secured and precert obtained.
--- NOTE | 2024-11-18 12:11 | W.PN.HOSP.TC ---
Today's Communication/Plan
-
CM for rehab
stop IVF
Assessment / Plan
Assessment / Plan
84yo F with PMHx of HTN, CAD, DM, HLD, seizures, insomnia, orthostatic hypotension, GERD, Hx of CVA, chronic hypoxic respiratory failure on 2L home O2 came after fall without LOC with R proximal humeral Fx and L ankle sprain. As per ortho -advised
to be managed conservatively. Developed ED that resolved with IVF, encourage oral fluid intake. Pending rehab - CM aware and working on it
A/P:
#Acute R proximal humeral Fx
#L ankle sprain
#Fall without LOC
Ortho followed: sling and outpatient follow up in 2 weeks
pain mgmt
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
most likely dehydration
IVF, hold SGLT-2 inh
follow Cr - baseline 1.8
#DM type 2 with nephropathy
Accuchecks, Insulin SS, DM diet
#Calcified L thyroid nodule
US as outpatient
TSH WNL
#HLD
#Hx of CVA
#Chronic hypoxic respiratory failure
#Hypertension with orthostatic hypotension
#Chronic pain with opioid dependency
#RA
#GERD
cont home meds
#Right upper lobe tree-in-bud nodules suggesting an inflammatory/infectious process
No fever no leukocytosis
most likely changes 2/2 RA
procal WNL - favor to avoid Abx
#Mild chronic anemia
follow up with PCP
DVT ppx hep
DNR/DNI
I have spent at least 36min reviewing chart, test results, communication with consultants and direct patient care
Anticipated Discharge: 24 - 48 hours
Subjective/Interval History
-
Date of Service: November 18, 2024
Objective Data
-
Labs:
Laboratory Results
11/18/24 11/18/24
05:52 08:55
Sodium Cancelled 136
Potassium Cancelled 4.7
Chloride Cancelled 103
Carbon Dioxide Cancelled 22
BUN Cancelled 46 H
Creatinine Cancelled 1.8 H
Glucose Cancelled 122 H
Calcium Cancelled 9.1
Vital Signs:
Vital Signs
Temp Pulse Resp BP Pulse Ox
98.1 F 83 18 134/63 96
11/18/24 07:00 11/18/24 08:29 11/18/24 07:00 11/18/24 08:29 11/18/24 08:00
I&O
11/17/24 11/18/24 11/19/24
06:59 06:59 06:59
Intake Total 1000 / 1000 840 / 840
Balance 1000 / 1000 840 / 840
Review of Systems
-
History Source: Patient
All other systems: Reviewed and negative
Physical Exam
-
General: Comfortable
HEENT: Normocephalic and Hearing Impaired
Respiratory: Clear to Auscultation
Cardiac: Regular Rhythm
GI: Soft, Nontender and Nondistended
Neuro: Awake, Alert, Oriented and AO x 3
Psych: Calm
[2024-11-18] MEDS: NSS IV (12:33)
[2024-11-18 12:37] LABS: Glucose - Point of Care 216 mg/dl (70-99)
--- NOTE | 2024-11-18 12:54 | CM ---
Addendum entered by Mel Beyer RN 11/18/24 14:58:
IMM on chart.
Addendum entered by Mel Beyer RN 11/18/24 14:56:
Auth received for 11/18-11/21; NRD 11/21 with Palmira Callejas ([phone]); fax ([phone]).
Plan: Discharge to [facility].
Call report to: [phone]
Fax report to: [phone]
Medical necessity and transport forms on chart.
Original Note:
Reviewed the chart notes and spoke with Mary Kate CARTER. Bed available. Patient's son agreeable to [facility]. Auth started through [facility] ([phone]). Clinicals faxed to ([phone]).
[facility] NPI# [id number]
Dr. Dyer
Ref# [id number]
Plan: Discharge to [facility] once auth obtained.
[2024-11-18] MEDS: NOVOLOG FLEXPEN-LOW RESISTANCE 2 UNITS SC (12:55)
[2024-11-18] MEDS: MS CONTIN (EXTENDED RELEASE) 15 MG PO (13:00)
[2024-11-18 15:00] VITALS: BP 113/55
--- NOTE | 2024-11-18 15:08 | W.DCSUMMARY ---
Discharge Summary
Discharge Data
Date of Admission: 11/14/24
Date of Discharge: 11/18/24
-
Pending Results: No
Hospital Course
84yo F with PMHx of HTN, CAD, DM, HLD, seizures, insomnia, orthostatic hypotension, GERD, Hx of CVA, chronic hypoxic respiratory failure on 2L home O2 came after fall without LOC with R proximal humeral Fx and L ankle sprain. As per ortho -advised
to be managed conservatively. Developed ED that resolved with IVF, encourage oral fluid intake. Furosemide and empaglifosin stopped with advanced CKD and signs of poor oral intake. Medically stable for d/c to rehab
I have spent at least 36min reviewing chart, test results, communication with consultants and direct patient care
Patient was managed for:
#Acute R proximal humeral Fx
#L ankle sprain
#Fall without LOC
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
#DM type 2 with nephropathy
#Calcified L thyroid nodule
#HLD
#Hx of CVA
#Chronic hypoxic respiratory failure
#Hypertension with orthostatic hypotension
#Chronic pain with opioid dependency
#RA
#GERD
#Right upper lobe tree-in-bud nodules suggesting an inflammatory/infectious process
#Mild chronic anemia
I have spent at least 36min reviewing chart, test results, communication with consultants and direct patient care
Discharge Plan
-
Patient Disposition: Residential/SNF
Discharge Diagnosis/Procedures: R humeral Fx
Diet: Diabetic, Carb Controlled
Activity: No restrictions
Driving Restrictions: As prior to admission
Referrals:
Andi Rasmussen DO [Family Provider] -
Raman Bautista MD [Active] - in one to two weeks
Prescriptions:
New
sennosides-docusate sodium 8.6-50 mg Tablet
1 tab PO BID Qty: 60 0RF
acetaminophen 325 mg Tablet
650 mg PO Q6HPRN PRN (Reason: mild pain/ fever>100.5F) Qty: 60 0RF
Continued
clopidogrel 75 MG tablet
75 mg PO NOON
atorvastatin 40 MG tablet
40 mg PO BID
levetiracetam 500 MG tablet
500 mg PO BID
aspirin 81 MG tablet,chewable
81 mg PO QPM
mirtazapine 15 MG tablet
15 mg PO HS Qty: 3 0RF
carvedilol 12.5 mg Tablet
12.5 mg PO BID
amlodipine 5 mg Tablet
5 mg PO DAILY
pantoprazole 40 mg Tablet,Delayed Release (Dr/Ec)
40 mg PO HS Qty: 0
midodrine 2.5 mg Tablet
2.5 mg PO DAILYPRN PRN (Reason: SBP<80) Qty: 0
morphine 15 MG tablet extended release
15 mg PO BID@1400,2000
Patient Comments:
11/14/24: last filled 10/29/24 for 60 tablets over 30 days
acetaminophen [Tylenol 8 Hour] 650 mg Tablet Extended Release
650 mg PO Q8HPRN PRN (Reason: mild pain)
famotidine 20 mg Tablet
20 mg PO BID
morphine 60 mg Tablet Extended Release
60 mg PO BID@0600,1800
Patient Comments:
11/14/24: last filled 10/31/24 for 60 tablets over 30 days
glimepiride 4 mg Tablet
4 mg PO BID
cholecalciferol (vitamin D3) [Vitamin D3] 25 mcg (1,000 unit) Tablet
25 mcg PO BID
polyethylene glycol 3350 [Miralax] 17 gram powder in packet
17 g PO DAILYPRN PRN (Reason: constipation)
Discontinued
furosemide 20 mg Tablet
20 mg PO DAILYPRN PRN (Reason: swelling)
Jardiance 10 mg Tablet
10 mg PO DAILY
Discharge Orders:
Discharge Patient (As Directed); Ordered 11/18/24
Ordered By: Leonel Martin
Discharge Date and Time
Print Language: MALAYSIAN
[2024-11-18 16:41] LABS: Glucose - Point of Care 67 mg/dl (70-99)
[2024-11-18] MEDS: LOW STRENGTH ASPIRIN 81 MG PO (17:11)
[2024-11-18 17:13] LABS: Glucose - Point of Care 58 mg/dl (70-99)
[2024-11-18 17:13] LABS: Glucose - Point of Care 59 mg/dl (70-99)
[2024-11-18 17:39] LABS: Glucose - Point of Care 76 mg/dl (70-99)
== END 2024-11-18 19:00 | DRG 563 ==
LOC: 2 SOUTH 18:22
PROVIDERS: Clinical Nurse Specialist Family Health; Hospitalist; ADMITTING PHYSICIAN Internal Medicine; ATTENDING PHYSICIAN Internal Medicine; EMERGENCY PHYSICIAN Emergency Medicine; FAMILY PHYSICIAN Internal Medicine Rheumatology
DX: S42.291A Other displaced fracture of upper end of right humerus, initial encounter for closed fracture (principal); F11.20 Opioid dependence, uncomplicated; N18.4 Chronic kidney disease, stage 4 (severe); J96.11 Chronic respiratory failure with hypoxia; N17.9 Acute kidney failure, unspecified; Z66 Do not resuscitate; M79.7 Fibromyalgia; S93.402A Sprain of unspecified ligament of left ankle, initial encounter; M06.9 Rheumatoid arthritis, unspecified; E11.22 Type 2 diabetes mellitus with diabetic chronic kidney disease; G40.909 Epilepsy, unspecified, not intractable, without status epilepticus; G89.4 Chronic pain syndrome; E78.5 Hyperlipidemia, unspecified; I12.9 Hypertensive chronic kidney disease with stage 1 through stage 4 chronic kidney disease, or unspecified chronic kidney disease; I95.1 Orthostatic hypotension; R26.89 Other abnormalities of gait and mobility; R29.6 Repeated falls; K21.9 Gastro-esophageal reflux disease without esophagitis; F32.A Depression, unspecified; E83.52 Hypercalcemia; E04.1 Nontoxic single thyroid nodule; I25.10 Atherosclerotic heart disease of native coronary artery without angina pectoris; D63.1 Anemia in chronic kidney disease; E87.5 Hyperkalemia; W01.0XXA Fall on same level from slipping, tripping and stumbling without subsequent striking against object, initial encounter; Z86.73 Personal history of transient ischemic attack (TIA), and cerebral infarction without residual deficits; Z88.2 Allergy status to sulfonamides; Z79.02 Long term (current) use of antithrombotics/antiplatelets; Z79.82 Long term (current) use of aspirin; Z79.84 Long term (current) use of oral hypoglycemic drugs; Z79.899 Other long term (current) drug therapy; Z87.891 Personal history of nicotine dependence; Z99.81 Dependence on supplemental oxygen
CPT/HCPCS: 73030; 73200; 73610; 80048; 80053; 82962; 83036; 84145; 84443; 85025; 85027; 96374; 97110; 97116; 97162; 97166; 97530; 97535; 99285

== ENCOUNTER → 2024-11-24 09:29 | Outpatient (REF) | payer OTHER, MEDICARE, SELFPAY ==
[2024-11-24 12:09] LABS: Hematocrit 31.3 % (37.0-47.0); Hemoglobin 9.3 g/dL (12.0-16.0); Mean Corp Hgb Conc. 29.7 g/dL (33.0-37.0); Mean Corpuscular Volume 90.7 fL (81.0-99.0); Mean Platelet Volume 9.7 fL (7.4-10.4); Platelet Count 185 10^3/uL (130-400); Red Blood Cell Count 3.45 10^6/uL (4.20-5.40); White Blood Cell Count 7.5 10^3/uL (4.8-10.8)
[2024-11-24 12:36] LABS: Blood Urea Nitrogen 49 mg/dl (7-17); Calcium 9.5 mg/dl (8.4-10.2); Carbon Dioxide 27 mmol/L (22-30); Chloride 101 mmol/L (98-107); Glucose 58 mg/dl (70-99); Sodium 138 mmol/L (135-145); eGFR 24.03
[2024-11-24 12:41] LABS: Potassium 4.8 mmol/L (3.5-5.1)
== END ==
LOC: OLABP 09:29
PROVIDERS: ATTENDING PHYSICIAN Family Medicine
DX: N17.9 Acute kidney failure, unspecified (principal); N18.4 Chronic kidney disease, stage 4 (severe); D64.9 Anemia, unspecified; M06.9 Rheumatoid arthritis, unspecified; E11.40 Type 2 diabetes mellitus with diabetic neuropathy, unspecified; Z86.73 Personal history of transient ischemic attack (TIA), and cerebral infarction without residual deficits; F11.20 Opioid dependence, uncomplicated; E11.9 Type 2 diabetes mellitus without complications; G89.29 Other chronic pain
CPT/HCPCS: 36415; 80048; 85027